=== PATIENT | female | born 1955 | race Caucasian/White ===

== ENCOUNTER 2017-04-04 00:11 | Inpatient (IN) | payer BC, OTHER ==
[~2017-04-04] VITALS: Ht 33 cm; Wt 137.1 kg
[~2017-04-04 00:11] MED LIST: ASPI81CH43 PO; BENA5TAB5; GABA600T; INSLANTI; METF-370
[2017-04-04] MEDS ORDERED: ACETAMINOPHEN 325 MG TAB PO ONE ×2 (01:05→07:45)
[2017-04-04] MEDS ORDERED: VANCOMYCIN 1GM/250ML D5W 250 ML IV ONE (02:50)
[2017-04-04] MEDS ORDERED: PIPERACILLIN-TAZOB 3.375GM 100 ML IV ONE (02:50)
[2017-04-04] MEDS ORDERED: MORPHINE SULF INJ 2 MG/ML SYRINGE 1ML IV ONE (06:00)
[2017-04-04 07:43] LABS: Albumin 3.1 g/dL (3.4-5.0); Alkaline Phosphatase 89 U/L (45-117); Anion Gap 11 (5-15); Aspartate Aminotransferase 21 U/L (15-37); BUN/Creatinine Ratio 16.9; Bilirubin, Total 0.7 mg/dL (0.2-1.0); Blood Urea Nitrogen 30 mg/dL (7-18); Calcium 8.8 mg/dL (8.5-10.1); Carbon Dioxide 23 mmol/L (21-32); Chloride 104 mmol/L (98-107); GFR African American 38 mL/min; GFR Non-African American 31 mL/min; Glucose 321 mg/dL (74-106); Potassium 4.4 mmol/L (3.5-5.1); Sodium 138 mmol/L (136-145); Total Protein 6.8 g/dL (6.4-8.2)
[2017-04-04 07:46] LABS: Basophils # (auto) 0 uL; Eosinophils # (auto) 0 uL; Eosinophils % (auto) 0.2 % (0.0-7.0); Lymphocytes # (auto) 0.3 uL; Lymphocytes % (auto) 2.6 % (10.0-50.0); Mean Corpuscular Hemoglobin 29.9 pg (28.0-32.0); Mean Corpuscular Hgb Conc. 33.4 g/dL (32.0-36.0); Mean Corpuscular Volume 89.4 fL (80.0-100.0); Monocytes # (auto) 0.7 uL; Monocytes % (auto) 6.3 % (0.0-12.0); Neutrophils % (auto) 90.9 % (37.0-80.0); Platelet Count (auto) 223 10^3/uL (140-450); Red Cell Distribution Width 14.6 % (11.6-16.0)
[2017-04-04 07:47] LABS: INR 0.97 (0.9-1.15); Partial Thromboplastin Time 10.6 sec (22.64-33.71)
[2017-04-04] MEDS ORDERED: LORazepam 2MG/ML-1ML VIAL IV PRN (10:00)
[2017-04-04] MEDS ORDERED: DEXTROSE (50%) 50ML SYRG IV PRN ×2 (10:00)
[2017-04-04] MEDS ORDERED: TEMAZEPAM 15 MG CAP PO PRN (10:00)
[2017-04-04] MEDS ORDERED: NITROGLYCERIN 0.4 MG SL TAB SL PRN (10:00)
[2017-04-04] MEDS ORDERED: ONDANSETRON HCL 4 MG/2 ML VIAL IV PRN (10:00)
[2017-04-04] MEDS ORDERED: MORPHINE SULFATE 4 MG/ML SYRG IV PRN (10:00)
[2017-04-04 10:38] LABS: Cholesterol 125 mg/dL (< 200); HDL Cholesterol 38 mg/dL (40-59); LDL Cholesterol 67 mg/dL (< 100); Triglycerides 168 mg/dL (< 150)
[2017-04-04] MEDS ORDERED: cefTRIAXone 1GM/50ML D5W 50 ML IV SCH (10:45)
[2017-04-04] MEDS: SODIUM CHLORIDE 0.9% 1,000 ML IV SCH (11:03)
[2017-04-04] MEDS: ACCU-CHEK COMFORT CURVE STRIP VI SCH ×3 (11:42→22:16)
[2017-04-04] MEDS: InsuLIN REG 1unit/0.01ml Soln (100units/ml) SC SCH ×3 (11:42→22:17)
[2017-04-04] MEDS: PIPERACILLIN-TAZOB 3.375GM 100 ML IV SCH ×2 (12:02→18:00)
[2017-04-04] MEDS: ACETAMINOPHEN 500 MG TAB PO PRN ×2 (13:35→22:12)
[2017-04-04 14:19] VITALS: BP 139/78
[2017-04-04 20:00] VITALS: BP 112/61
[2017-04-04 21:38] VITALS: BP 112/51
[2017-04-04] MEDS ORDERED: ATORVASTATIN 20 MG TAB PO SCH (22:00)
[2017-04-04] MEDS: ATORVASTATIN 20 MG TAB PO SCH (22:12)
[2017-04-04] MEDS: CLINDAMYCIN 600MG IV 50 ML IV SCH (22:12)
[2017-04-05] MEDS: SODIUM CHLORIDE 0.9% 1,000 ML IV SCH ×2 (00:05→14:11)
[2017-04-05] MEDS: InsuLIN REG 1unit/0.01ml Soln (100units/ml) SC SCH ×5 (00:06→21:49)
[2017-04-05] MEDS: PIPERACILLIN-TAZOB 3.375GM 100 ML IV SCH ×5 (00:10→23:44)
[2017-04-05 05:00] VITALS: BP 139/74
[2017-04-05] MEDS: CLINDAMYCIN 600MG IV 50 ML IV SCH ×3 (05:28→21:48)
[2017-04-05 05:50] LABS: Urine Bilirubin Negative (Negative); Urine Color Yellow (Yellow); Urine Ketone Negative (Negative); Urine Nitrite Negative (Negative); Urine RBC 1 /hpf (0 - 4); Urine Urobilinogen Normal (Negative)
[2017-04-05 05:51] LABS: Urine Blood 1+ /uL (Negative); Urine Glucose 1+ mg/dL (Normal)
[2017-04-05] MEDS: ACETAMINOPHEN 500 MG TAB PO PRN (06:23)
[2017-04-05] MEDS: ACCU-CHEK COMFORT CURVE STRIP VI SCH ×4 (06:25→21:59)
[2017-04-05 06:43] LABS: Basophils # (auto) 0 uL; Basophils % (auto) 0.2 % (0.0-2.0); CONDITION Y; Eosinophils # (auto) 0 uL; Hematocrit 31.8 % (36.0-46.0); Hemoglobin 10.8 g/dL (12.2-16.2); Lymphocytes # (auto) 0.7 uL; Lymphocytes % (auto) 5.7 % (10.0-50.0); Mean Corpuscular Hemoglobin 30.2 pg (28.0-32.0); Mean Corpuscular Hgb Conc. 33.8 g/dL (32.0-36.0); Mean Corpuscular Volume 89.3 fL (80.0-100.0); Mean Platelet Volume 8.1 fL (7.4-10.4); Monocytes # (auto) 0.5 uL; Monocytes % (auto) 4.5 % (0.0-12.0); Neutrophils # (auto) 10.6 uL; Neutrophils % (auto) 89.6 % (37.0-80.0); Platelet Count (auto) 197 10^3/uL (140-450); Red Cell Distribution Width 14.7 % (11.6-16.0); SUSPECT SEE PRINTOUT; White Blood Cell 11.9 10^3/uL (4.4-10.8)
[2017-04-05 07:03] LABS: BUN/Creatinine Ratio 16.5; Calcium 8.1 mg/dL (8.5-10.1); Potassium 4.3 mmol/L (3.5-5.1)
[2017-04-05] MEDS ORDERED: LOSA50TA6 PO (07:27)
[2017-04-05] MEDS ORDERED: INSUINJ37 SUBCUT ×2 (07:27)
[2017-04-05] MEDS ORDERED: IBUP800T24 PO (07:27)
[2017-04-05] MEDS ORDERED: LAB20I IV (07:27)
[2017-04-05] MEDS ORDERED: FURO40TA4 PO (07:27)
[2017-04-05] MEDS ORDERED: BENZ100C97 PO (07:27)
[2017-04-05] MEDS ORDERED: SEVE800T8 PO (07:27)
[2017-04-05] MEDS ORDERED: ALLO100T PO (07:27)
[2017-04-05] MEDS ORDERED: CYCL1TAB18 PO (07:27)
[2017-04-05] MEDS ORDERED: ATOR40TA52 PO (07:27)
[2017-04-05] MEDS ORDERED: INSU50IN3 SC (07:27)
[2017-04-05] MEDS ORDERED: META-116 PO (07:27)
[2017-04-05 09:00] VITALS: BP 109/57
[2017-04-05 13:00] VITALS: BP 126/62
[2017-04-05] MEDS: MORPHINE SULFATE 4 MG/ML SYRG IV PRN ×2 (15:18→20:18)
[2017-04-05 16:57] VITALS: BP 113/76
[2017-04-05 20:00] VITALS: BP 118/44
[2017-04-05] MEDS: ATORVASTATIN 20 MG TAB PO SCH (21:48)
[2017-04-05 22:00] VITALS: BP 118/44
[2017-04-06 05:00] VITALS: BP 106/48
[2017-04-06 05:20] LABS: Basophils # (auto) 0 uL; Basophils % (auto) 0.3 % (0.0-2.0); CONDITION Y; Eosinophils # (auto) 0.1 uL; Hemoglobin 9.8 g/dL (12.2-16.2); Lymphocytes # (auto) 0.7 uL; Lymphocytes % (auto) 7.1 % (10.0-50.0); Mean Corpuscular Hemoglobin 30.2 pg (28.0-32.0); Mean Corpuscular Hgb Conc. 33.7 g/dL (32.0-36.0); Mean Corpuscular Volume 89.6 fL (80.0-100.0); Mean Platelet Volume 8.3 fL (7.4-10.4); Monocytes # (auto) 0.5 uL; Monocytes % (auto) 4.8 % (0.0-12.0); Neutrophils # (auto) 9.2 uL; Neutrophils % (auto) 86.8 % (37.0-80.0); Platelet Count (auto) 207 10^3/uL (140-450); Red Cell Distribution Width 15.2 % (11.6-16.0); White Blood Cell 10.6 10^3/uL (4.4-10.8)
[2017-04-06 05:34] LABS: BUN/Creatinine Ratio 16.9; Calcium 8.1 mg/dL (8.5-10.1); Potassium 4.1 mmol/L (3.5-5.1)
[2017-04-06] MEDS: CLINDAMYCIN 600MG IV 50 ML IV SCH ×3 (05:53→21:37)
[2017-04-06] MEDS: PIPERACILLIN-TAZOB 3.375GM 100 ML IV SCH ×4 (06:14→23:46)
[2017-04-06] MEDS: ACCU-CHEK COMFORT CURVE STRIP VI SCH ×4 (06:44→21:37)
[2017-04-06] MEDS: InsuLIN REG 1unit/0.01ml Soln (100units/ml) SC SCH ×4 (06:44→21:37)
[2017-04-06] MEDS: MORPHINE SULFATE 4 MG/ML SYRG IV PRN ×3 (06:45→21:36)
[2017-04-06 09:00] VITALS: BP 96/47
[2017-04-06] MEDS ORDERED: SODIUM CHLORIDE 0.9% 1,000 ML IV SCH (10:45)
[2017-04-06 12:08] VITALS: BP 117/68
[2017-04-06 16:21] VITALS: BP 117/57
[2017-04-06] MEDS: ATORVASTATIN 20 MG TAB PO SCH (21:37)
[2017-04-06 21:45] VITALS: BP 151/77
[2017-04-06] MEDS ORDERED: INSULIN DETEMIR(LEVEMIR) 1unit/0.01ml Soln (100units/ml) SC SCH ×3 (22:00)
[2017-04-07] MEDS: MORPHINE SULFATE 4 MG/ML SYRG IV PRN ×3 (04:11→17:11)
[2017-04-07 05:00] VITALS: BP 130/52
[2017-04-07] MEDS: CLINDAMYCIN 600MG IV 50 ML IV SCH ×2 (05:46→14:00)
[2017-04-07] MEDS: PIPERACILLIN-TAZOB 3.375GM 100 ML IV SCH ×3 (05:57→17:11)
[2017-04-07 06:14] LABS: Basophils # (auto) 0 uL; Basophils % (auto) 0.3 % (0.0-2.0); CONDITION Y; Eosinophils # (auto) 0.2 uL; Eosinophils % (auto) 2.5 % (0.0-7.0); Hematocrit 27.8 % (36.0-46.0); Hemoglobin 9.4 g/dL (12.2-16.2); Lymphocytes # (auto) 0.9 uL; Lymphocytes % (auto) 13.3 % (10.0-50.0); Mean Corpuscular Hgb Conc. 33.9 g/dL (32.0-36.0); Mean Corpuscular Volume 88.7 fL (80.0-100.0); Mean Platelet Volume 8.4 fL (7.4-10.4); Monocytes # (auto) 0.6 uL; Monocytes % (auto) 8.8 % (0.0-12.0); Neutrophils # (auto) 5.3 uL; Neutrophils % (auto) 75.1 % (37.0-80.0); Platelet Count (auto) 209 10^3/uL (140-450); Red Cell Distribution Width 14.7 % (11.6-16.0); White Blood Cell 7.1 10^3/uL (4.4-10.8)
[2017-04-07 06:34] LABS: BUN/Creatinine Ratio 18.3; Calcium 8.2 mg/dL (8.5-10.1); Potassium 4.3 mmol/L (3.5-5.1)
[2017-04-07] MEDS: InsuLIN REG 1unit/0.01ml Soln (100units/ml) SC SCH ×3 (06:38→17:00)
[2017-04-07] MEDS: ACCU-CHEK COMFORT CURVE STRIP VI SCH ×3 (06:38→17:00)
[2017-04-07 09:00] VITALS: BP 120/57
[2017-04-07] MEDS ORDERED: SODIUM CHLORIDE 0.9% 1,000 ML IV SCH (10:45)
[2017-04-07 13:00] VITALS: BP 128/68
[2017-04-07 17:00] VITALS: BP 124/75
== END 2017-04-07 19:25 | disposition home health service (06) | DRG 602 ==
LOC: ER 00:11 → TELE 00:12 → TELE-CENTR 13:57
PROVIDERS: ADMIT Nurse Practitioner Family; ATTEND Family Medicine
PROC: 5A09357 Assistance with Respiratory Ventilation, Less than 24 Consecutive Hours, Continuous Positive Airway Pressure (ICD-10-PCS; principal; 2017-04-04)
DX: L03.90 Cellulitis, unspecified (principal); G93.41 Metabolic encephalopathy; E66.01 Morbid (severe) obesity due to excess calories; R29.700 NIHSS score 0; N18.3 Chronic kidney disease, stage 3 (moderate); I12.9 Hypertensive chronic kidney disease with stage 1 through stage 4 chronic kidney disease, or unspecified chronic kidney disease; G89.29 Other chronic pain; G47.33 Obstructive sleep apnea (adult) (pediatric); E11.22 Type 2 diabetes mellitus with diabetic chronic kidney disease; D64.9 Anemia, unspecified; E11.42 Type 2 diabetes mellitus with diabetic polyneuropathy; E78.5 Hyperlipidemia, unspecified; K59.00 Constipation, unspecified; Z79.4 Long term (current) use of insulin; Z90.710 Acquired absence of both cervix and uterus; Z79.82 Long term (current) use of aspirin; Z79.84 Long term (current) use of oral hypoglycemic drugs; Z79.899 Other long term (current) drug therapy; Z82.49 Family history of ischemic heart disease and other diseases of the circulatory system; Z83.3 Family history of diabetes mellitus; Z80.9 Family history of malignant neoplasm, unspecified; Z90.49 Acquired absence of other specified parts of digestive tract
CPT/HCPCS: 36415; 70450; 71010; 80048; 80053; 80061; 81001; 82962; 83036; 83605; 84484; 85025; 85610; 85730; 87040; 87081; 93005; 93970; 94660; 95819; 96365; 96375; J0696; J1815; J2543; J3490

== ENCOUNTER 2017-06-20 04:22 | Inpatient (IN) | payer BC ==
[~2017-06-20] VITALS: Ht 172.7 cm; Wt 122.5 kg
[~2017-06-20 04:22] MED LIST changes: +ALLO100T PO; -ASPI81CH43 PO; +ATOR40TA52 PO; -BENA5TAB5; +BENZ100C97 PO; +CYCL1TAB18 PO; +FURO40TA4 PO; -GABA600T; +IBUP800T24 PO; +INSU50IN3 SC; +INSUINJ37 SUBCUT; +LAB20I IV; +LOSA50TA6 PO; +META-116 PO; -METF-370; +SEVE800T8 PO
[2017-06-20] MEDS ORDERED: SODIUM CHLORIDE 0.9% 1,000 ML IV ONE (07:34)
[2017-06-20] MEDS ORDERED: MORPHINE SULF INJ 2 MG/ML SYRINGE 1ML IV ONE (07:45)
[2017-06-20] MEDS ORDERED: ONDANSETRON HCL 4 MG/2 ML VIAL IV ONE ×2 (07:45)
[2017-06-20 08:27] LABS: Basophils # (auto) 0 uL; Basophils % (auto) 0.4 % (0.0-2.0); Eosinophils # (auto) 0.2 uL; Eosinophils % (auto) 1.7 % (0.0-7.0); Hematocrit 34.2 % (36.0-46.0); Hemoglobin 11.5 g/dL (12.2-16.2); Lymphocytes # (auto) 1.8 uL; Lymphocytes % (auto) 16.6 % (10.0-50.0); Mean Corpuscular Hemoglobin 29.9 pg (28.0-32.0); Mean Corpuscular Hgb Conc. 33.5 g/dL (32.0-36.0); Mean Corpuscular Volume 89.3 fL (80.0-100.0); Mean Platelet Volume 7.5 fL (6.9-10.8); Monocytes # (auto) 0.7 uL; Monocytes % (auto) 6.6 % (0.0-12.0); Neutrophils % (auto) 74.7 % (37.0-80.0); Platelet Count (auto) 250 10^3/uL (140-450); Red Cell Distribution Width 14.4 % (11.8-14.3); White Blood Cell 10.7 10^3/uL (4.4-10.8)
[2017-06-20 08:50] LABS: Albumin 2.9 g/dL (3.4-5.0); BUN/Creatinine Ratio 24.2; Bilirubin, Total 0.4 mg/dL (0.2-1.0); Calcium 9.1 mg/dL (8.5-10.1); Potassium 4.4 mmol/L (3.5-5.1); Total Protein 7.4 g/dL (6.4-8.2)
[2017-06-20] MEDS ORDERED: PIPERACILLIN-TAZOB 3.375GM 100 ML IV ONE (10:15)
[2017-06-20] MEDS ORDERED: LACTULOSE 20Gm/30ML SOLN PO PRN (10:15)
[2017-06-20] MEDS ORDERED: ACETAMINOPHEN 500 MG TAB PO PRN (10:15)
[2017-06-20] MEDS ORDERED: LORazepam 0.5 MG TAB PO PRN (10:15)
[2017-06-20] MEDS ORDERED: DEXTROSE (50%) 50ML SYRG IV PRN (10:15)
[2017-06-20] MEDS ORDERED: NITROGLYCERIN 0.4 MG SL TAB SL PRN (10:15)
[2017-06-20] MEDS ORDERED: PROMETHAZINE HCL 25 MG/ML 1ML IV PRN (10:15)
[2017-06-20] MEDS ORDERED: MORPHINE SULF INJ 2 MG/ML SYRINGE 1ML IV PRN (10:15)
[2017-06-20] MEDS: SODIUM CHLORIDE 0.9% 1,000 ML IV SCH ×2 (10:58→20:06)
[2017-06-20] MEDS: InsuLIN REG 1unit/0.01ml Soln (100units/ml) SC SCH ×3 (12:55→22:18)
[2017-06-20] MEDS: ACCU-CHEK COMFORT CURVE STRIP VI SCH ×3 (12:55→22:19)
[2017-06-20 15:52] LABS: Urine Bilirubin Negative (Negative); Urine Blood Negative /uL (Negative); Urine Color Yellow (Yellow); Urine Glucose TRACE mg/dL (Normal); Urine Hyaline Cast FEW /lpf (0 - 2); Urine Ketone Negative (Negative); Urine Nitrite Negative (Negative); Urine RBC 1 /hpf (0 - 4); Urine Squamous Epithelial Cell FEW /hpf (<5); Urine Urobilinogen Normal (Negative); Urine pH 5.5 (5.0-8.0)
[2017-06-20] MEDS: LINEZOLID 600MG/300ML 300 ML IV SCH ×2 (16:00→22:07)
[2017-06-20] MEDS: MORPHINE SULF INJ 2 MG/ML SYRINGE 1ML IV PRN ×2 (16:07→20:12)
[2017-06-20] MEDS: PIPERACILLIN-TAZOB 3.375GM 100 ML IV SCH (17:41)
[2017-06-20 22:00] VITALS: BP 128/65
[2017-06-21] MEDS: PIPERACILLIN-TAZOB 3.375GM 100 ML IV SCH ×4 (00:59→18:03)
[2017-06-21] MEDS: TEMAZEPAM 15 MG CAP PO PRN (01:40)
[2017-06-21] MEDS: MORPHINE SULF INJ 2 MG/ML SYRINGE 1ML IV PRN ×4 (03:34→19:37)
[2017-06-21 05:00] VITALS: BP 143/72
[2017-06-21] MEDS: InsuLIN REG 1unit/0.01ml Soln (100units/ml) SC SCH ×4 (05:51→22:31)
[2017-06-21] MEDS: ACCU-CHEK COMFORT CURVE STRIP VI SCH ×4 (05:51→22:32)
[2017-06-21] MEDS: SODIUM CHLORIDE 0.9% 1,000 ML IV SCH ×2 (05:52→14:28)
[2017-06-21 06:11] LABS: Basophils # (auto) 0 uL; Basophils % (auto) 0.5 % (0.0-2.0); Eosinophils # (auto) 0.2 uL; Eosinophils % (auto) 2.6 % (0.0-7.0); Hematocrit 31.2 % (36.0-46.0); Hemoglobin 10.6 g/dL (12.2-16.2); Lymphocytes # (auto) 1.1 uL; Mean Corpuscular Hemoglobin 29.9 pg (28.0-32.0); Mean Corpuscular Hgb Conc. 33.9 g/dL (32.0-36.0); Mean Corpuscular Volume 88.2 fL (80.0-100.0); Mean Platelet Volume 7.7 fL (6.9-10.8); Monocytes # (auto) 0.7 uL; Monocytes % (auto) 7.8 % (0.0-12.0); Neutrophils # (auto) 6.6 uL; Neutrophils % (auto) 76.1 % (37.0-80.0); Platelet Count (auto) 226 10^3/uL (140-450); Red Cell Distribution Width 14.3 % (11.8-14.3); White Blood Cell 8.7 10^3/uL (4.4-10.8)
[2017-06-21 06:19] LABS: Albumin 2.5 g/dL (3.4-5.0); Calcium 8.2 mg/dL (8.5-10.1); Potassium 4.4 mmol/L (3.5-5.1)
[2017-06-21 06:21] LABS: BUN/Creatinine Ratio 21.1
[2017-06-21 06:24] LABS: Bilirubin, Total 0.7 mg/dL (0.2-1.0); Total Protein 6.3 g/dL (6.4-8.2)
[2017-06-21] MEDS: PANTOPRAZOLE 40 MG TAB PO SCH (09:27)
[2017-06-21] MEDS: ENOXAPARIN SOD 40 MG/0.4 ML SYRINGE SC SCH (09:27)
[2017-06-21] MEDS: LINEZOLID 600MG/300ML 300 ML IV SCH ×2 (09:27→22:55)
[2017-06-21 10:18] VITALS: BP 132/61
[2017-06-21] MEDS: HYDROcodone-ACET 5/325MG TAB PO PRN (11:32)
[2017-06-21 15:34] VITALS: BP 127/76
[2017-06-21 17:39] VITALS: BP 91/61
[2017-06-21] MEDS: BUMETANIDE (0.25MG/ML) 4 ML VIAL IV SCH (18:02)
[2017-06-21 22:00] VITALS: BP 140/75
[2017-06-21] MEDS: INSULIN DETEMIR(LEVEMIR) 1unit/0.01ml Soln (100units/ml) SC SCH (22:32)
[2017-06-22] MEDS: PIPERACILLIN-TAZOB 3.375GM 100 ML IV SCH ×2 (00:42→06:30)
[2017-06-22] MEDS: TEMAZEPAM 15 MG CAP PO PRN ×2 (00:46→22:27)
[2017-06-22 05:00] VITALS: BP 147/71
[2017-06-22] MEDS: BUMETANIDE (0.25MG/ML) 4 ML VIAL IV SCH (06:30)
[2017-06-22] MEDS: InsuLIN REG 1unit/0.01ml Soln (100units/ml) SC SCH ×4 (06:47→22:26)
[2017-06-22] MEDS: ACCU-CHEK COMFORT CURVE STRIP VI SCH ×4 (06:47→22:27)
[2017-06-22] MEDS: INSULIN DETEMIR(LEVEMIR) 1unit/0.01ml Soln (100units/ml) SC SCH ×2 (06:47→22:26)
[2017-06-22] MEDS: HYDROcodone-ACET 5/325MG TAB PO PRN (06:57)
[2017-06-22 07:03] LABS: Calcium 8.6 mg/dL (8.5-10.1); Potassium 4.4 mmol/L (3.5-5.1)
[2017-06-22] MEDS: SODIUM CHLORIDE 0.9% 1,000 ML IV SCH ×2 (07:08→14:24)
[2017-06-22 07:41] VITALS: BP 139/66
[2017-06-22] MEDS: LINEZOLID 600MG/300ML 300 ML IV SCH ×2 (10:12→22:17)
[2017-06-22] MEDS: PANTOPRAZOLE 40 MG TAB PO SCH (10:12)
[2017-06-22] MEDS: ENOXAPARIN SOD 40 MG/0.4 ML SYRINGE SC SCH (10:12)
[2017-06-22] MEDS: PIPERACILLIN-TAZOB 2.25GM 50 ML IV SCH ×3 (11:41→18:08)
[2017-06-22 12:03] VITALS: BP 116/61
[2017-06-22] MEDS: MORPHINE SULF INJ 2 MG/ML SYRINGE 1ML IV PRN (19:35)
[2017-06-22 22:00] VITALS: BP 151/74
[2017-06-23] MEDS: PIPERACILLIN-TAZOB 2.25GM 50 ML IV SCH ×3 (00:11→12:12)
[2017-06-23] MEDS: MORPHINE SULF INJ 2 MG/ML SYRINGE 1ML IV PRN ×2 (00:21→06:21)
[2017-06-23 05:14] VITALS: BP 134/71
[2017-06-23] MEDS: SODIUM CHLORIDE 0.9% 1,000 ML IV SCH ×2 (06:20→10:28)
[2017-06-23 06:26] LABS: BUN/Creatinine Ratio 16.1; Calcium 8.8 mg/dL (8.5-10.1); Potassium 3.9 mmol/L (3.5-5.1)
[2017-06-23] MEDS: ACCU-CHEK COMFORT CURVE STRIP VI SCH ×2 (06:31→11:13)
[2017-06-23] MEDS: InsuLIN REG 1unit/0.01ml Soln (100units/ml) SC SCH ×2 (06:32→11:14)
[2017-06-23] MEDS: INSULIN DETEMIR(LEVEMIR) 1unit/0.01ml Soln (100units/ml) SC SCH (06:32)
[2017-06-23 09:00] VITALS: BP 140/66
[2017-06-23] MEDS ORDERED: ENOXAPARIN SOD 40 MG/0.4 ML SYRINGE SC SCH (10:00)
[2017-06-23] MEDS ORDERED: ENOXAPARIN SOD 30 MG/0.3 ML SYRINGE SC SCH (10:00)
[2017-06-23] MEDS: LINEZOLID 600MG/300ML 300 ML IV SCH (10:16)
[2017-06-23] MEDS: PANTOPRAZOLE 40 MG TAB PO SCH (10:16)
[2017-06-23] MEDS ORDERED: DOXY-216 PO (12:40)
[2017-06-23] MEDS ORDERED: SACC1CAP3 PO (12:40)
[2017-06-23] MEDS ORDERED: CEPH-37 PO (12:40)
[2017-06-23] MEDS ORDERED: TEMA15CA91 PO (12:50)
[2017-06-23] MEDS ORDERED: ZOLP10TA PO (12:52)
[2017-06-23] MEDS ORDERED: TRAZ50TA2 PO (12:52)
[2017-06-23 13:00] VITALS: BP 131/56
[2017-06-23 15:06] VITALS: BP 130/60
== END 2017-06-23 16:20 | disposition home or self-care (01) | DRG 603 ==
LOC: ER 04:22 → EDBD 04:22 → TELE 04:23 → TELE-E-ADS 11:02 → TELE-EAST 12:26
PROVIDERS: ADMIT Internal Medicine; ATTEND Hospitalist
DX: L03.115 Cellulitis of right lower limb (principal); E11.22 Type 2 diabetes mellitus with diabetic chronic kidney disease; N17.9 Acute kidney failure, unspecified; I50.9 Heart failure, unspecified; N18.3 Chronic kidney disease, stage 3 (moderate); I13.0 Hypertensive heart and chronic kidney disease with heart failure and stage 1 through stage 4 chronic kidney disease, or unspecified chronic kidney disease; Z68.41 Body mass index [BMI] 40.0-44.9, adult; I80.3 Phlebitis and thrombophlebitis of lower extremities, unspecified; T50.2X5A Adverse effect of carbonic-anhydrase inhibitors, benzothiadiazides and other diuretics, initial encounter; E11.65 Type 2 diabetes mellitus with hyperglycemia; E66.01 Morbid (severe) obesity due to excess calories; M10.9 Gout, unspecified; R59.1 Generalized enlarged lymph nodes; J45.909 Unspecified asthma, uncomplicated; E78.5 Hyperlipidemia, unspecified; Z83.3 Family history of diabetes mellitus; Z90.49 Acquired absence of other specified parts of digestive tract; Z90.710 Acquired absence of both cervix and uterus; Y92.89 Other specified places as the place of occurrence of the external cause; Z79.4 Long term (current) use of insulin; Z79.899 Other long term (current) drug therapy; Z90.89 Acquired absence of other organs; Z80.9 Family history of malignant neoplasm, unspecified; Z82.49 Family history of ischemic heart disease and other diseases of the circulatory system; Z90.721 Acquired absence of ovaries, unilateral
CPT/HCPCS: 36415; 80048; 80053; 81001; 82962; 83036; 83605; 85025; 85379; 85652; 87040; 87081; 87086; 93971; 94761; 96361; 96365; 96375; J1815; J2405; J2543

== ENCOUNTER 2018-02-02 04:39 | Emergency (ER) | payer BC ==
[~2018-02-02] VITALS: Ht 172.7 cm; Wt 90.7 kg
[~2018-02-02 04:39] MED LIST changes: +CEPH-37 PO; +DOXY-216 PO; -IBUP800T24 PO; -LAB20I IV; -LOSA50TA6 PO; -META-116 PO; +SACC1CAP3 PO; +TRAZ50TA2 PO
[2018-02-02 07:19] LABS: Basophils # (auto) 0 uL; Basophils % (auto) 0.6 % (0.0-2.0); Eosinophils # (auto) 0.2 uL; Eosinophils % (auto) 2.6 % (0.0-7.0); Hematocrit 37.8 % (36.0-46.0); Lymphocytes # (auto) 1.4 uL; Lymphocytes % (auto) 21.7 % (10.0-50.0); Mean Corpuscular Hemoglobin 30.4 pg (28.0-32.0); Mean Corpuscular Hgb Conc. 34.4 g/dL (32.0-36.0); Mean Corpuscular Volume 88.5 fL (80.0-100.0); Monocytes # (auto) 0.4 uL; Neutrophils # (auto) 4.3 uL; Neutrophils % (auto) 68.1 % (37.0-80.0); Nucleated Red Blood Cells % 0.1 %; Platelet Count (auto) 229 10^3/uL (140-450); Red Blood Cells 4.27 10^6/uL (4.0-5.20); Red Cell Distribution Width 14.6 % (11.8-14.3); Salicylate < 1.7 mg/dL (2.8-20.0); White Blood Cell 6.3 10^3/uL (4.4-10.8)
[2018-02-02 07:21] LABS: Acetaminophen 4.1 ug/mL (10-30); Albumin 2.8 g/dL (3.4-5.0); Anion Gap 8 (5-15); BUN/Creatinine Ratio 25.3; Blood Alcohol < 3.0 mg/dL (0-5); Blood Urea Nitrogen 43 mg/dL (7-18); Calcium 8.9 mg/dL (8.5-10.1); Carbon Dioxide 24 mmol/L (21-32); Chloride 109 mmol/L (98-107); GFR African American 39 mL/min; GFR Non-African American 33 mL/min; Glucose 204 mg/dL (74-106); Magnesium 2.4 mg/dL (1.6-2.6); Potassium 4.4 mmol/L (3.5-5.1); Sodium 141 mmol/L (136-145)
[2018-02-02 07:24] LABS: Alanine Aminotransferase 28 U/L (13-56); Alkaline Phosphatase 91 U/L (45-117); Aspartate Aminotransferase 17 U/L (15-37); Bilirubin, Total 0.3 mg/dL (0.2-1.0); Total Protein 7.5 g/dL (6.4-8.2)
[2018-02-02 08:35] LABS: Urine Bacteria MANY /hpf (None Seen); Urine Blood 1+ /uL (Negative); Urine Specific Gravity 1.019 (1.001-1.035); Urine WBC 163 /hpf (0 - 5); Urine WBC Clumps PRESENT /hpf (None Seen)
[2018-02-02 08:47] LABS: Alcohol, Urine < 3.0 mg/dL (0-5); Amphetamine Screen, Urine NEGATIVE (NEGATIVE); Barbiturate Scree,Urine NEGATIVE (NEGATIVE); Benzodiazephine Screen, Urine NEGATIVE (NEGATIVE); Cannabinoid Screen, Urine NEGATIVE (NEGATIVE); Cocaine Screen, Urine NEGATIVE (NEGATIVE); Opiate Scree,Urine POSITIVE (NEGATIVE); Phencyclidine Screen, Urine NEGATIVE (NEGATIVE)
[2018-02-02 09:40] VITALS: BP 158/113
== END 2018-02-02 11:59 | disposition home or self-care (01) ==
LOC: EDBD 04:39 → ER 04:45
DX: T50.7X1A Poisoning by analeptics and opioid receptor antagonists, accidental (unintentional), initial encounter (principal); E66.01 Morbid (severe) obesity due to excess calories; E11.65 Type 2 diabetes mellitus with hyperglycemia; E11.21 Type 2 diabetes mellitus with diabetic nephropathy; J45.909 Unspecified asthma, uncomplicated; M10.9 Gout, unspecified; N39.0 Urinary tract infection, site not specified; N18.9 Chronic kidney disease, unspecified; E11.22 Type 2 diabetes mellitus with diabetic chronic kidney disease; I12.9 Hypertensive chronic kidney disease with stage 1 through stage 4 chronic kidney disease, or unspecified chronic kidney disease; E78.5 Hyperlipidemia, unspecified; Z90.49 Acquired absence of other specified parts of digestive tract; Z90.710 Acquired absence of both cervix and uterus; Y92.89 Other specified places as the place of occurrence of the external cause
CPT/HCPCS: 36415; 80053; 80307; 80320; 80329; 81001; 83735; 85025; 93005

== ENCOUNTER 2020-01-27 15:05 | Inpatient (IN) | payer MEDICARE, MEDICAID ==
[~2020-01-27] VITALS: Ht 167.6 cm; Wt 112.9 kg
[~2020-01-27 15:05] MED LIST changes: -DOXY-216 PO; +DOXY-286 PO
[2020-01-27] MEDS ORDERED: SODIUM CHLORIDE 0.9% 1,000 ML IV ONE (15:51)
[2020-01-27 16:40] LABS: Basophils # (auto) 0 10 ^3/uL (0-0.2); Basophils % (auto) 0.2 % (0.0-2.0); Eosinophils # (auto) 0 10 ^3/uL (0-0.8); Hemoglobin 10.7 g/dL (12.2-16.2); Platelet Count (auto) 577 10^3/uL (140-450)
[2020-01-27 16:42] LABS: Eosinophils % (auto) 0.1 % (0.0-7.0); Hematocrit 33.4 % (36.0-46.0); Lymphocytes # (auto) 0.8 10 ^3/uL (0.4-5.4); Lymphocytes % (auto) 4.4 % (10.0-50.0); Mean Corpuscular Hemoglobin 28.2 pg (28.0-32.0); Mean Corpuscular Volume 88.1 fL (80.0-100.0); Monocytes # (auto) 1.2 10 ^3/uL (0-1.3); Monocytes % (auto) 6.7 % (0.0-12.0); Neutrophils # (auto) 15.7 10 ^3/uL (1.6-8.6); Neutrophils % (auto) 88.6 % (37.0-80.0); Red Blood Cells 3.79 10^6/uL (4.0-5.20); Red Cell Distribution Width 15.3 % (11.8-14.3); White Blood Cell 17.7 10^3/uL (4.4-10.8)
[2020-01-27 17:08] LABS: INR 1.08 (0.9-1.15); Partial Thromboplastin Time 31.8 sec (23.64-32.05)
[2020-01-27 17:13] LABS: Anion Gap 11 (5-15); Blood Urea Nitrogen 62 mg/dL (7-18); Calcium 10.3 mg/dL (8.5-10.1); Carbon Dioxide 20 mmol/L (21-32); Chloride 103 mmol/L (98-107); Glucose 264 mg/dL (74-106); Magnesium 2.6 mg/dL (1.6-2.6); Potassium 4.7 mmol/L (3.5-5.1); Sodium 134 mmol/L (136-145)
[2020-01-27 17:15] LABS: Alanine Aminotransferase 14 U/L (13-56); Aspartate Aminotransferase 14 U/L (15-37); GFR African American 28 mL/min; GFR Non-African American 23 mL/min
[2020-01-27 17:18] LABS: Alkaline Phosphatase 250 U/L (45-117); Bilirubin, Total 0.4 mg/dL (0.2-1.0); Total Protein 9.2 g/dL (6.4-8.2)
[2020-01-27 17:20] LABS: BUN/Creatinine Ratio 27.2
[2020-01-27 17:27] LABS: Albumin 1.9 g/dL (3.4-5.0)
[2020-01-27 17:29] LABS: Lactic Acid w/Reflex 2.1 mmol/L (0.4-2.0)
[2020-01-27 18:53] LABS: Amphetamine Screen, Urine NEGATIVE (NEGATIVE); Barbiturate Scree,Urine NEGATIVE (NEGATIVE); Benzodiazephine Screen, Urine NEGATIVE (NEGATIVE); Cannabinoid Screen, Urine NEGATIVE (NEGATIVE); Cocaine Screen, Urine NEGATIVE (NEGATIVE); Opiate Scree,Urine NEGATIVE (NEGATIVE); Phencyclidine Screen, Urine NEGATIVE (NEGATIVE); Urine Bacteria NONE SEEN /hpf (None Seen); Urine Blood 2+ /uL (Negative); Urine Mucus FEW (None Seen); Urine Specific Gravity 1.021 (1.001-1.035); Urine WBC 5 /hpf (0 - 5)
[2020-01-27] MEDS ORDERED: NITROGLYCERIN 0.4 MG SL TAB SL PRN ×3 (20:30→20:45)
[2020-01-27] MEDS ORDERED: MORPHINE SULF INJ 2 MG/ML SYRINGE 1ML IV PRN ×2 (20:30→20:45)
[2020-01-27] MEDS: SOD CHL 0.45% 1,000 ML IV SCH (20:32)
[2020-01-27] MEDS ORDERED: METOPROLOL SUCCINATE XL 50 MG TAB PO ONE (20:45)
[2020-01-27] MEDS ORDERED: ONDANSETRON HCL 4 MG/2 ML VIAL IV PRN (20:45)
[2020-01-27] MEDS ORDERED: DEXTROSE (50%) 50ML SYRG IV PRN (20:45)
[2020-01-27] MEDS ORDERED: LORazepam 2MG/ML-1ML VIAL IM PRN (20:45)
[2020-01-27] MEDS ORDERED: HALOPERIDOL LACTATE 5 MG/ML INJ VIAL IM PRN (20:45)
[2020-01-27] MEDS ORDERED: LOSARTAN POTASSIUM 50 MG TAB PO ONE (20:45)
[2020-01-27] MEDS ORDERED: IPRATROPIUM BROM 0.5 MG/2.5ML INH SOL NEB PRN (21:30)
[2020-01-27] MEDS ORDERED: ALBUTEROL SULF 2.5 MG/0.5ML(0.5%) NEB SOLN NEB PRN (21:30)
[2020-01-27] MEDS: CYCLOBENZAPRINE HCL 10 MG TAB PO SCH (22:00)
[2020-01-27] MEDS ORDERED: InsuLIN REG 1unit/0.01ml Soln (100units/ml) SC SCH (22:00)
[2020-01-27] MEDS: traZODone HCL 50 MG TAB PO SCH (22:00)
[2020-01-27] MEDS: ATORVASTATIN 20 MG TAB PO SCH (22:00)
[2020-01-27] MEDS: FUROSEMIDE 100 MG/10ML VIAL IV SCH (22:00)
[2020-01-27] MEDS: ACCU-CHEK COMFORT CURVE STRIP VI SCH (22:00)
[2020-01-27 22:07] VITALS: BP 169/64
[2020-01-28] VITALS (54 sets, daily range): BP systolic 113–184; BP diastolic 51–85
--- NOTE | 2020-01-28 00:03 | NUR ---
Admit to [facility] admitted to [facility] via gurney on surveillance system monitor, and portable 02. Patient transfered to bed, connected to unit monitoring and oxygen, and [facility] by [facility]. Patient oriented to RIVER STRATTON primary RN, unit, room, bed, and unit policies regarding patient care and visiting hours. All questions and concerns addressed. Addendum: 01/28/20 at 0051 by Madison Espinosa RN PATIENT IS AWAKE, CONFUSED, DOES NOT FOLLOW COMMANDS. ARRIVED ON MEDSURG RESTRAINTS TO BILATERAL UPPER EXTREMITIES AND A SITTER AT BEDSIDE. ON ROOM AIR. KIT KENNY AT 5MCG. PATIENT IS INCONTINENT OF BOWEL. SINGH CATH DRAINING YELLOW URINE TO GRAVITY. PICS TAKEN OF RIGHT HIP AND LEFT FOOT. WILL CONTINUE TO CLOSELY MONITOR.
--- NOTE | 2020-01-28 00:20 | NUR ---
MRSA SWABS SENT TO LAB
--- NOTE | 2020-01-28 00:23 | NUR ---
wound photos taken
[2020-01-28] MEDS ORDERED: GABA-339 PO (00:30)
--- NOTE | 2020-01-28 00:30 | NUR ---
MORNING HYGIENE CARE FULL BED BATH PERFORMED USING CHG WIPES AND WARM SOAPY WASH CLOTHES. GOWN CHANGED. PARTIAL LINEN CHANGED. REPOSITIONED FOR COMFORT. TOLERATED IT WELL.
[2020-01-28] MEDS ORDERED: FURO1TAB32 PO (00:34)
[2020-01-28] MEDS ORDERED: LOSA-69 PO (00:34)
[2020-01-28] MEDS ORDERED: SENN1TAB14 PO (00:34)
[2020-01-28] MEDS ORDERED: ACET250T3 PO (00:34)
[2020-01-28] MEDS: LORazepam 0.5 MG TAB PO PRN (01:43)
--- NOTE | 2020-01-28 02:17 | NUR ---
Respiratory note: At bedside to assess pt for prn tx. Tx not indicated at this time.
[2020-01-28 03:44] LABS: Basophils # (auto) 0 10 ^3/uL (0-0.2); Basophils % (auto) 0.1 % (0.0-2.0); Eosinophils # (auto) 0 10 ^3/uL (0-0.8); Hematocrit 29.2 % (36.0-46.0); Hemoglobin 9.4 g/dL (12.2-16.2); Monocytes # (auto) 1.2 10 ^3/uL (0-1.3)
[2020-01-28 03:46] LABS: Lymphocytes # (auto) 0.6 10 ^3/uL (0.4-5.4); Lymphocytes % (auto) 3.3 % (10.0-50.0); Mean Corpuscular Hemoglobin 27.6 pg (28.0-32.0); Mean Corpuscular Volume 86.4 fL (80.0-100.0); Monocytes % (auto) 6.5 % (0.0-12.0); Neutrophils % (auto) 90.1 % (37.0-80.0); Platelet Count (auto) 511 10^3/uL (140-450); Red Blood Cells 3.38 10^6/uL (4.0-5.20); White Blood Cell 18.9 10^3/uL (4.4-10.8)
[2020-01-28 03:51] LABS: INR 1.13 (0.9-1.15); Partial Thromboplastin Time 29.8 sec (23.64-32.05)
[2020-01-28 03:54] LABS: Albumin 1.6 g/dL (3.4-5.0); Anion Gap 11 (5-15); Blood Urea Nitrogen 73 mg/dL (7-18); Calcium 9.4 mg/dL (8.5-10.1); Carbon Dioxide 21 mmol/L (21-32); Chloride 104 mmol/L (98-107); Glucose 400 mg/dL (74-106); Magnesium 2.5 mg/dL (1.6-2.6); Potassium 4.7 mmol/L (3.5-5.1); Sodium 136 mmol/L (136-145)
[2020-01-28 04:01] LABS: % Iron Saturation 11.3 % (15-50)
[2020-01-28 04:03] LABS: Alanine Aminotransferase 13 U/L (13-56); Alkaline Phosphatase 234 U/L (45-117); Aspartate Aminotransferase 13 U/L (15-37); BUN/Creatinine Ratio 28.3; Bilirubin, Total 0.4 mg/dL (0.2-1.0); Cholesterol 120 mg/dL (< 200); Creatine Kinase IFCC 48 U/L (26-192); Folate (Folic Acid) 13.84 ng/mL (5.38-24); GFR African American 24 mL/min; GFR Non-African American 20 mL/min; HDL Cholesterol 19 mg/dL (40-59); LDL Cholesterol 70 mg/dL (< 100); Phosphorus 3.6 mg/dL (2.5-4.90); Total Protein 8.3 g/dL (6.4-8.2); Triglycerides 158 mg/dL (< 150); Uric Acid 11.8 mg/dL (2.6-6.0)
[2020-01-28 04:08] LABS: CRP High Sensitivity > 19.0 mg/dL (< 0.3)
[2020-01-28] MEDS ORDERED: FUROSEMIDE 40 MG/4 ML VIAL ONE (04:27)
--- NOTE | 2020-01-28 05:15 | NUR ---
IV insertion IV access obtained, via clean sterile technique by inserting [20] gauge catheter at [LEFT FOREARM] after [1] attempt(s). IV secured properly. No trauma to site. Patient tolerated well. NOTE: 2ND IV SITE
[2020-01-28] MEDS: FUROSEMIDE 100 MG/10ML VIAL IV SCH (05:20)
[2020-01-28] MEDS: ACCU-CHEK COMFORT CURVE STRIP VI SCH ×7 (05:21→23:31)
[2020-01-28] MEDS: InsuLIN REG 1unit/0.01ml Soln (100units/ml) SC SCH ×5 (05:46→23:33)
--- NOTE | 2020-01-28 06:34 | NUR ---
Respiratory note: PT ASSESSED FOR PRN TX. HR 100, RR 18, POX 98% ON 3L NC, BS ARE CLR/DIM. NO SOB OR DISTRESS NOTED. PT WAS NOTIFY TO HAVE RN PAGE RT FOR NEEDED TX.
--- NOTE | 2020-01-28 06:59 | NUR ---
received phone call from son after receiving correct password, updated son on patient status. Informed on icu status hospital while in [facility] unit. All questions addressed at this time.
--- NOTE | 2020-01-28 07:18 | NUR ---
END OF SHIFT REPORT GIVEN AND CARE ENDORSED TO ELÍAS HOLMAN.
--- NOTE | 2020-01-28 07:30 | NUR ---
Opening Shift Note Assumed care of patient, awake and oriented x2, follows simple commands. Both wrist on soft restraints, skin and circulation WNL. No S/S of distress/SOB or pain. Patient saturation 95% at 3 LPM oxygen via nasal cannula. See interventions for complete assessment. Bed locked on low position, side rails up x2, bed alarms on at all times, call gambino within reach, ANN Vaughn at bedside, will continue to monitor for changes Q1hr and PRN.
--- NOTE | 2020-01-28 08:00 | NUR ---
Soft restraint on RT wrist removed, Skin and circulation WNL, will continue to monitor patient.
--- NOTE | 2020-01-28 08:30 | NUR ---
Soft wrist restraint removed on LT wrist, skin and circulation WNL. Will continue to monitor patient.
--- NOTE | 2020-01-28 09:00 | NUR ---
Patient asleep and calm, soft wrist restraint discontinued on both wrist, skin and circulation WNL.
--- NOTE | 2020-01-28 09:05 | NUR ---
Received call from patient's daughter in law Maco who is able to provide password. Updated on patient's status and POC, verbalized understanding. All questions and concerns addressed.
[2020-01-28] MEDS: DOCUSATE SOD 100 MG CAP PO SCH (10:00)
[2020-01-28] MEDS ORDERED: ALLOPURINOL 100 MG TAB PO SCH (10:00)
[2020-01-28] MEDS ORDERED: LOSARTAN POTASSIUM 50 MG TAB PO SCH (10:00)
[2020-01-28] MEDS: FLORASTOR (S. BOULARDII) 250 MG CAP PO SCH (10:00)
[2020-01-28] MEDS ORDERED: ENOXAPARIN SOD 40 MG/0.4 ML SYRINGE SC SCH (10:00)
[2020-01-28] MEDS: cefTRIAXone 1GM/50ML D5W 50 ML IV SCH (10:03)
[2020-01-28] MEDS: ENOXAPARIN SOD 30 MG/0.3 ML SYRINGE SC SCH (10:04)
--- NOTE | 2020-01-28 10:30 | NUR ---
PO medications held, patient not awake and safe enough to swallow at this time
[2020-01-28] MEDS: AZITHROMYCIN 500MG/ 250ML 250 ML IV SCH (11:19)
[2020-01-28] MEDS: SOD CHL 0.45% 1,000 ML IV SCH ×2 (11:20→13:47)
--- NOTE | 2020-01-28 12:45 | NUR ---
Patient fed with two packs of apple sauce.
[2020-01-28] MEDS: METOPROLOL TARTRATE 50 MG TAB PO SCH ×2 (12:59→22:00)
[2020-01-28] MEDS: ASPirin 81 mg TAB PO SCH (12:59)
[2020-01-28] MEDS ORDERED: VANCOMYCIN PER PHARMACY 0 MG IV SCH (13:00)
--- NOTE | 2020-01-28 13:00 | NUR ---
Paged Dr Win and called back, inquired if patient can be started on Aspirin and Plavix per Dr Laurent. Dr Win states "Will wait until tomorrow." Will inform Dr Laurent. Addendum: 01/28/20 at 1409 by Yuly Baeza RN Jacques patient
--- NOTE | 2020-01-28 13:08 | NUR ---
Dr Slaughter at bedside, updated on patient's status. Informed of blood culture report, verbalized understanding, plan to start patient on Vanco. Patient seen and examined. Per Dr Slaughter patient can be down graded to [facility] once Nicardipine drip is off. Read back and verified. Will carry out new orders.
--- NOTE | 2020-01-28 13:10 | NUR ---
Received verbal order from Dr Slaughter to discontinue Furosemide, read back and verified. Will carry out.
--- NOTE | 2020-01-28 13:26 | NUR ---
Urine sample sent to lab
--- NOTE | 2020-01-28 13:30 | NUR ---
Mishel Castillo at bedside, updated on patient's status. Patient seen and examined. Will carry out new orders.
--- NOTE | 2020-01-28 13:30 | NUR ---
BP 118/81, Nicardipine drip turned off. Will continue to monitor.
--- NOTE | 2020-01-28 13:45 | NUR ---
MRSA swab sent to lab
[2020-01-28 14:02] LABS: Urine Amorphous Crystal MANY /hpf (None Seen); Urine Bacteria FEW /hpf (None Seen); Urine Blood 2+ /uL (Negative); Urine Hyaline Cast MANY /lpf (0 - 2); Urine Mucus FEW (None Seen); Urine Specific Gravity 1.019 (1.001-1.035); Urine WBC 14 /hpf (0 - 5)
--- NOTE | 2020-01-28 14:12 | NUR ---
Echocardiogram being done at bedside.
[2020-01-28 14:14] LABS: Amphetamine Screen, Urine NEGATIVE (NEGATIVE); Barbiturate Scree,Urine NEGATIVE (NEGATIVE); Benzodiazephine Screen, Urine NEGATIVE (NEGATIVE); Cannabinoid Screen, Urine NEGATIVE (NEGATIVE); Cocaine Screen, Urine NEGATIVE (NEGATIVE); Opiate Scree,Urine NEGATIVE (NEGATIVE); Phencyclidine Screen, Urine NEGATIVE (NEGATIVE)
[2020-01-28] MEDS: LINEZOLID 600MG/300ML 300 ML IV SCH ×2 (14:20→23:33)
--- NOTE | 2020-01-28 14:47 | NUR ---
Paged Dr Slaughter regarding patient D-dimer 5.52, awaiting call back.
--- NOTE | 2020-01-28 15:09 | NUR ---
Spoke to Ryan from Nuclear Medicine regarding patient's VQ scan, per Ryan it can't be done today because medication is not available. Dr Slaughter informed.
--- NOTE | 2020-01-28 15:38 | NUR ---
Bilateral venous ultrasound being done at bedside.
--- NOTE | 2020-01-28 15:54 | NUR ---
COVID swab sent to lab
--- NOTE | 2020-01-28 16:32 | NUR ---
Urine sample sent to lab.
[2020-01-28 16:42] LABS: BUN/Creatinine Ratio 26.3
--- NOTE | 2020-01-28 17:00 | NUR ---
Spoke to Dr Slaughter over the phone, informed of patient's serum glucose 420, POC glucose 358. Received telephone order to start patient on Insulin drip per protocol and switch IV to 1/2 NS with Sodium Bicarbonate, orders read back and verified. Will carry out.
[2020-01-28] MEDS ORDERED: InsuLIN R (HUMAN) 100 UNITS in SODIUM CHL 0.9% 99 ML IV SCH (17:36)
[2020-01-28] MEDS ORDERED: SODIUM BICARBONATE 50ML VIAL 50 ML in SOD CHL 0.45% 1,000 ML IV SCH (17:45)
--- NOTE | 2020-01-28 18:30 | NUR ---
Paged Dr Yang and called back, updated on patient's status. Informed of patient's POC glucose 352 mg/dl, serum glucose 420. verbalized understanding. Received telephone order to hold Insulin drip and Bicarb IV. Start patient on Lantus and Lispro, switch Insulin sliding scale from moderate to aggressive every four hours and check patient's ABG. Orders read back and verified, will carry out.
[2020-01-28 18:33] LABS: Urine Amorphous Crystal FEW /hpf (None Seen); Urine Blood 2+ /uL (Negative); Urine Mucus FEW (None Seen); Urine Specific Gravity 1.019 (1.001-1.035); Urine WBC 28 /hpf (0 - 5)
[2020-01-28 18:34] LABS: Protein, Urine 459.2 mg/dL (0.0-11.9)
[2020-01-28 18:55] LABS: Urine Bacteria FEW /hpf (None Seen)
[2020-01-28 18:56] LABS: Urine Hyaline Cast FEW /lpf (0 - 2)
[2020-01-28] MEDS ORDERED: INSULIN LANTUS (GLARGINE) 1 /0.01ml (100units/ml) SC ONE (19:00)
--- NOTE | 2020-01-28 19:10 | NUR ---
Respiratory note: ASSESSMENT FOR PRN MED NEB TX. DR. PABLO AT BEDSIDE. HR 74, SPO2 95% ON 28% FIO2 2L NC, RR 15, BS DIMINISHED. PT PRESENTING NO RESPIRATORY DISTRESS AT THIS TIME. MED NEB TX NOT INDICATED. ABG DRAWN, NO NEW RESPIRATORY ORDERS AT THIS TIME. WILL CONTINUE TO MONITOR.
[2020-01-28] MEDS ORDERED: DEXTROSE (50%) 50ML SYRG IV PRN (19:15)
--- NOTE | 2020-01-28 20:00 | NUR ---
SHIFT OPENING NOTE PATIENT IS AWAKE ALERT AND ORIENTED X3. IS CALM, FOLLOWS COMMANDS. ON 3L N/C. POX 97%. SINGH CATH DRAINING YELLOW URINE TO GRAVITY. 0.45NS INFUSING AT 125 ML/H. PHYSICAL ASSESSMENT COMPLETED, SEE INTERVENTIONS. INSTRUCTED ON POC AND TO CALL FOR ASSIST NEEDED. BED IS IN THE LOWEST POSITION WITH SIDE RAILS UP X2, CALL LIGHT IS WITHIN REACH. BED ALARM ON. SITTER AT BEDSIDE FOR SAFETY. WILL CONTINUE TO CLOSELY MONITOR.
[2020-01-28] MEDS: traZODone HCL 50 MG TAB PO SCH (20:47)
[2020-01-28] MEDS: CYCLOBENZAPRINE HCL 10 MG TAB PO SCH (20:47)
[2020-01-28] MEDS: ATORVASTATIN 20 MG TAB PO SCH (20:48)
[2020-01-28] MEDS: HYDROcodone-ACET 5/325MG TAB PO PRN (20:49)
[2020-01-29] VITALS: BP 128/52
[2020-01-29] MEDS: SOD CHL 0.45% 1,000 ML IV SCH ×3 (02:31→11:25)
--- NOTE | 2020-01-29 03:00 | NUR ---
MORNING HYGIENE CARE FULL BED BATH PERFORMED USING CHG WIPES AND WARM SOAPY WASH CLOTHES. GOWN CHANGED. PARTIAL LINEN CHANGED. REPOSITIONED FOR COMFORT. TOLERATED IT WELL.
[2020-01-29 04:00] VITALS: BP 130/52
[2020-01-29 04:11] LABS: RPR Non Reactive (Non Reactive)
[2020-01-29 04:52] LABS: Basophils # (auto) 0 10 ^3/uL (0-0.2); Basophils % (auto) 0.1 % (0.0-2.0); Eosinophils # (auto) 0.1 10 ^3/uL (0-0.8); Eosinophils % (auto) 0.5 % (0.0-7.0); Hematocrit 27.3 % (36.0-46.0); Hemoglobin 8.6 g/dL (12.2-16.2); Lymphocytes # (auto) 0.6 10 ^3/uL (0.4-5.4); Lymphocytes % (auto) 3.9 % (10.0-50.0); Mean Corpuscular Hemoglobin 27.6 pg (28.0-32.0); Mean Corpuscular Hgb Conc. 31.5 g/dL (32.0-36.0); Mean Corpuscular Volume 87.5 fL (80.0-100.0); Monocytes # (auto) 0.9 10 ^3/uL (0-1.3); Monocytes % (auto) 5.7 % (0.0-12.0); Neutrophils # (auto) 13.6 10 ^3/uL (1.6-8.6); Neutrophils % (auto) 89.8 % (37.0-80.0); Platelet Count (auto) 437 10^3/uL (140-450); Red Blood Cells 3.12 10^6/uL (4.0-5.20); Red Cell Distribution Width 16.2 % (11.8-14.3); White Blood Cell 15.1 10^3/uL (4.4-10.8)
[2020-01-29 05:08] LABS: Albumin 1.5 g/dL (3.4-5.0); Potassium 4.6 mmol/L (3.5-5.1)
[2020-01-29 05:14] LABS: BUN/Creatinine Ratio 26.9; Bilirubin, Total 0.3 mg/dL (0.2-1.0); Total Protein 7.9 g/dL (6.4-8.2)
[2020-01-29] MEDS: ACCU-CHEK COMFORT CURVE STRIP VI SCH ×6 (05:24→23:45)
[2020-01-29] MEDS: InsuLIN REG 1unit/0.01ml Soln (100units/ml) SC SCH ×6 (05:24→23:46)
[2020-01-29] MEDS: INSULIN LISPRO (HUMAN) 100 UNITS/ML ML SC SCH ×3 (05:25→16:06)
--- NOTE | 2020-01-29 07:20 | NUR ---
ENF OF SHIFT REPORT GIVEN AND CARE ENDORSED TO JAKE HOLMAN.
--- NOTE | 2020-01-29 07:20 | NUR ---
REPORT RECEIVED FROM MOLD REPAIRER NURSE. PATIENT RESTING IN BED AT THIS TIME. RESPIRATIONS EVEN AND UNLABORED. NO SIGNS OF ACUTE DISTRESS NOTED. PATIENT IS ALERT WITH INTERMITTENT CONFUSION PULLING AT LINES. MITTENS IN PLACE FOR PATIENT SAFETY. CALL LIGHT IN REACH, BED IN LOW POSITION. WILL CONTINUE TO MONITOR.
[2020-01-29 08:00] VITALS: BP 148/65
--- NOTE | 2020-01-29 09:00 | NUR ---
DR Gisell ADAME AT BEDSIDE TO ASSESS PATIENT AND DISCUSS PLAN OF CARE. ALL ORDERS NOTED IN CHART.
[2020-01-29] MEDS: cefTRIAXone 1GM/50ML D5W 50 ML IV SCH (09:05)
[2020-01-29] MEDS: DOCUSATE SOD 100 MG CAP PO SCH (10:00)
--- NOTE | 2020-01-29 10:21 | NUR ---
DR ANDERSEN AT BEDSIDE TO ASSESS PATIENT AND DISCUSS PLAN OF CARE. ALL ORDERS NOTED IN CHART.
[2020-01-29] MEDS ORDERED: ALLOPURINOL 100 MG TAB PO SCH (10:30)
[2020-01-29] MEDS ORDERED: FUROSEMIDE 100 MG/10ML VIAL IV ONE (11:15)
[2020-01-29] MEDS ORDERED: FUROSEMIDE 40 MG/4 ML VIAL ONE (11:17)
[2020-01-29] MEDS: AZITHROMYCIN 500MG/ 250ML 250 ML IV SCH (11:25)
[2020-01-29] MEDS: ENOXAPARIN SOD 30 MG/0.3 ML SYRINGE SC SCH (11:25)
[2020-01-29] MEDS: ASPirin 81 mg TAB PO SCH (11:25)
[2020-01-29] MEDS: FLORASTOR (S. BOULARDII) 250 MG CAP PO SCH (11:25)
[2020-01-29] MEDS: METOPROLOL TARTRATE 50 MG TAB PO SCH ×2 (11:25→21:54)
[2020-01-29 12:00] VITALS: BP 142/59
[2020-01-29] MEDS: ACETAMINOPHEN 325 MG TAB PO PRN (12:44)
--- NOTE | 2020-01-29 13:41 | NUR ---
DOSIER OPERATOR AT BEDSIDE.
--- NOTE | 2020-01-29 14:22 | NUR ---
EEG- ELECTROENCEPHALOGRAM COMPLETED ON 01/29/2020 AT 1400.
--- NOTE | 2020-01-29 15:07 | NUR ---
PATIENT TAKEN TO RADIOLOGY FOR VQ SCAN AND LEFT FOOT CT VIA BED CONNECTED TO PORTABLE MONITOR AND OXYGEN, ACCOMPANIED BY RADIOLOGY NURSE AND TECH. NO SIGNS OF ACUTE DISTRESS NOTED.
[2020-01-29] MEDS: LINEZOLID 600MG/300ML 300 ML IV SCH (15:09)
--- NOTE | 2020-01-29 15:30 | NUR ---
Attempted PT eval but pt is out of room for test. Will attempt again later.
--- NOTE | 2020-01-29 15:53 | NUR ---
PATIENT RETURNED BACK FROM RADIOLOGY CONNECTED TO BEDSIDE MONITOR AND OXYGEN. VITAL SIGNS STABLE. WILL CONTINUE TO MONITOR. BED IN LOW POSITION, CALL LIGHT IN REACH. REMOVED MITTENS PATIENTS MENTATION HAS IMPROVED. DISCUSSED WITH PATIENT NOT TO PULL ON LINES OR TUBING. PATIENT VERBALIZED UNDERSTANDING.
[2020-01-29 16:00] VITALS: BP 123/61
--- NOTE | 2020-01-29 16:02 | NUR ---
HEALTH AND WELLNESS ADVISOR AT BEDSIDE
--- NOTE | 2020-01-29 17:05 | NUR ---
REPORT GIVEN TO ELIANA HOLMAN PATIENT TO GO TO ROOM 276B.
--- NOTE | 2020-01-29 17:15 | NUR ---
PATIENT TRANSFERRED VIA BED CONNECTED TO TELE BOX 82 VIA BED CONNECTED TO OXYGEN. NO SIGNS OF ACUTE DISTRESS NOTED. ELIANA RN AT BEDSIDE WELL TRUANT OFFICER UPON ARRIVAL. BED IN LOW POSITION. CALL LIGHT IN REACH. WILL CONTINUE TO MONITOR.
[2020-01-29] MEDS: HYDROcodone-ACET 5/325MG TAB PO PRN ×2 (17:45→22:58)
--- NOTE | 2020-01-29 19:30 | NUR ---
Opening Shift Note Assumed care of patient, awake and alert times 4. No S/S of distress/SOB or pain. patient has scabs to her upper and lower extremities. Instructed on POC and to call for assist PRN, will continue to monitor for changes Q1hr and PRN. bed in low position call light within reach bed alarm on. Addendum: 01/29/20 at 2037 by JESSICA ANDERSON RN RN CORRECTION A/O TIMES 3
--- NOTE | 2020-01-29 19:30 | NUR ---
Respiratory note: ASSESSED PT FOR PRN TX, PT WAS AWAKE AND ALERT WITH RN AT BEDSIDE. NO RESP DISTRESS NOTED. HR 78, RR 16, SPO2 98% ON 2L NC. PATIENT KNOWS TO HAVE RT PAGED IF TX IS NEEDED.
--- NOTE | 2020-01-29 19:30 | NUR ---
PATIENT REFUSED SCD. PATIENT EDUCATED BENEFITS AND RISKS. PATIENT VERBALIZED UNDERSTANDING
[2020-01-29 21:27] VITALS: BP 154/67
[2020-01-29] MEDS: CYCLOBENZAPRINE HCL 10 MG TAB PO SCH (21:54)
[2020-01-29] MEDS: traZODone HCL 50 MG TAB PO SCH (21:55)
[2020-01-29] MEDS: ATORVASTATIN 20 MG TAB PO SCH (21:55)
[2020-01-29] MEDS: INSULIN LANTUS (GLARGINE) 1 /0.01ml (100units/ml) SC SCH (21:59)
--- NOTE | 2020-01-29 22:58 | NUR ---
6/ 10 pain generalized aching. patient medicated per protocol
--- NOTE | 2020-01-29 23:58 | NUR ---
pain reassessment patient is sleeping no signs of distress sob or pain. fall precautions in place
[2020-01-30] VITALS (7 sets, daily range): BP systolic 130–154; BP diastolic 49–70
[2020-01-30] MEDS: SOD CHL 0.45% 1,000 ML IV SCH (00:48)
[2020-01-30] MEDS: LINEZOLID 600MG/300ML 300 ML IV SCH ×2 (00:58→12:31)
[2020-01-30] MEDS: ACCU-CHEK COMFORT CURVE STRIP VI SCH ×6 (03:50→23:56)
[2020-01-30] MEDS: InsuLIN REG 1unit/0.01ml Soln (100units/ml) SC SCH ×6 (03:51→23:57)
[2020-01-30] MEDS: HYDROcodone-ACET 5/325MG TAB PO PRN ×4 (05:12→20:18)
--- NOTE | 2020-01-30 05:12 | NUR ---
0512 PATIENT REPORTED 6/10 PAIN PATIENT MEDICATED PER PROTOCOL OXYGEN REASSESED 95% VIA NC 2L
[2020-01-30] MEDS: INSULIN LISPRO (HUMAN) 100 UNITS/ML ML SC SCH ×3 (06:02→17:49)
--- NOTE | 2020-01-30 06:48 | NUR ---
patient rounds patient is in bed watching tv. denies sob distress or pain.patient position to comfort. pressure areas offloaded onto pillows. dressings are clean dry and intact. skin intact scabs to hip and left toe. call light within reach fall precautions in place. bed in low position. bed alarm on.
[2020-01-30 07:03] LABS: Basophils # (auto) 0 10 ^3/uL (0-0.2); Eosinophils # (auto) 0.2 10 ^3/uL (0-0.8); Hemoglobin 8.3 g/dL (12.2-16.2)
[2020-01-30 07:04] LABS: Basophils % (auto) 0.1 % (0.0-2.0); Eosinophils % (auto) 1.2 % (0.0-7.0); Hematocrit 26.2 % (36.0-46.0); Lymphocytes # (auto) 0.7 10 ^3/uL (0.4-5.4); Lymphocytes % (auto) 4.6 % (10.0-50.0); Mean Corpuscular Hemoglobin 27.4 pg (28.0-32.0); Mean Corpuscular Hgb Conc. 31.5 g/dL (32.0-36.0); Mean Corpuscular Volume 87.1 fL (80.0-100.0); Monocytes # (auto) 1.1 10 ^3/uL (0-1.3); Neutrophils # (auto) 13.8 10 ^3/uL (1.6-8.6); Neutrophils % (auto) 87.1 % (37.0-80.0); Platelet Count (auto) 400 10^3/uL (140-450); Red Blood Cells 3.01 10^6/uL (4.0-5.20); Red Cell Distribution Width 15.8 % (11.8-14.3); White Blood Cell 15.9 10^3/uL (4.4-10.8)
--- NOTE | 2020-01-30 07:15 | NUR ---
REPORT GIVEN TO SAUNDRA HOLMAN.
[2020-01-30 07:35] LABS: Bilirubin, Total 0.3 mg/dL (0.2-1.0); Calcium 9.1 mg/dL (8.5-10.1); Total Protein 7.4 g/dL (6.4-8.2)
[2020-01-30 07:54] LABS: Albumin 1.3 g/dL (3.4-5.0); BUN/Creatinine Ratio 29.7
[2020-01-30] MEDS: cefTRIAXone 1GM/50ML D5W 50 ML IV SCH (08:23)
--- NOTE | 2020-01-30 08:35 | NUR ---
PATIENT CONTINUES TO EXPERIENCE PAIN AFTER RECEIVING PAIN MEDICATIONS. PROVIDED PATIENT WITH HEAT PACKS AND REPOSITIONED. WILL CONTACT MD FOR ADDITIONAL PAIN MED OPTIONS.
[2020-01-30] MEDS ORDERED: FUROSEMIDE 40 MG/4 ML VIAL IV SCH (10:00)
[2020-01-30] MEDS ORDERED: ALLOPURINOL 300 MG TAB PO ONE (10:15)
[2020-01-30] MEDS: FUROSEMIDE 100 MG/10ML VIAL IV ONE ×2 (10:15→10:20)
[2020-01-30] MEDS ORDERED: FUROSEMIDE 40 MG/4 ML VIAL IV ONE (10:15)
[2020-01-30] MEDS: DOCUSATE SOD 100 MG CAP PO SCH (10:16)
[2020-01-30] MEDS: AZITHROMYCIN 500MG/ 250ML 250 ML IV SCH (10:16)
[2020-01-30] MEDS: ASPirin 81 mg TAB PO SCH (10:16)
[2020-01-30] MEDS: FLORASTOR (S. BOULARDII) 250 MG CAP PO SCH (10:17)
[2020-01-30] MEDS: METOPROLOL TARTRATE 50 MG TAB PO SCH ×2 (10:17→22:26)
[2020-01-30] MEDS: ENOXAPARIN SOD 30 MG/0.3 ML SYRINGE SC SCH (10:18)
--- NOTE | 2020-01-30 10:40 | NUR ---
Respiratory note: PATIENT ASSESSED FOR PRN MED-NEB TX; TX NOT INDICATED AT THIS TIME PATIENT IS IN NO ACUTE RESPIRATORY DISTRESS AND DENIES NEED. PATIENT INSTRUCTED TO CALL FOR RT IF SHE FEELS THE NEED FOR TX AT A LATER TIME. SPO2 97% 2LPM N/C
--- NOTE | 2020-01-30 10:53 | NUR ---
DR ADAME BEDSIDE WITH PATIENT DISCUSSING PLAN OF CARE. INFORMED DR OF PATIENTS CONTINUED PAIN AND ASKED IF LASIX SHOULD BE HELD. ORDERS RECEIVED AND CARRIED OUT. PER DR ADAME, I WILL HOLD LASIX UNTIL MADKOUR ROUNDS TODAY
[2020-01-30] MEDS: SODIUM CHLORIDE 0.9% 1,000 ML IV SCH (11:33)
--- NOTE | 2020-01-30 13:00 | NUR ---
LEFT MESSAGE FOR DR ANDERSEN REGARDING LASIX MEDICATION. PER DR ADAME, I HELD LASIX UNTIL CONFIRMED WITH DR ANDERSEN THAT MED WAS TO BE GIVEN.
--- NOTE | 2020-01-30 13:50 | NUR ---
DR PABLO BEDSIDE WITH PATIENT
--- NOTE | 2020-01-30 19:20 | NUR ---
Opening Shift Note Assumed care of patient, awake, alert and oriented x4, on 2L oxygen via NC with even and unlabored respirations, no S/S of distress/SOB or pain. Patient able to turn independently, bed in lowest locked position, side rails up x2, and call light within reach. Instructed on POC and to call for assist PRN, will continue to monitor for changes Q1hr and PRN.
[2020-01-30] MEDS: traZODone HCL 50 MG TAB PO SCH (22:24)
[2020-01-30] MEDS: CYCLOBENZAPRINE HCL 10 MG TAB PO SCH (22:24)
[2020-01-30] MEDS: ATORVASTATIN 20 MG TAB PO SCH (22:25)
[2020-01-30] MEDS: INSULIN LANTUS (GLARGINE) 1 /0.01ml (100units/ml) SC SCH (22:36)
[2020-01-31] MEDS: SODIUM CHLORIDE 0.9% 1,000 ML IV SCH (00:02)
[2020-01-31] MEDS: LINEZOLID 600MG/300ML 300 ML IV SCH ×2 (01:27→13:10)
[2020-01-31] MEDS: HYDROcodone-ACET 5/325MG TAB PO PRN ×2 (02:38→10:28)
[2020-01-31] MEDS: ACCU-CHEK COMFORT CURVE STRIP VI SCH ×5 (04:02→20:14)
[2020-01-31] MEDS: InsuLIN REG 1unit/0.01ml Soln (100units/ml) SC SCH ×5 (04:02→20:14)
[2020-01-31 05:00] VITALS: BP 135/66
[2020-01-31 05:55] LABS: Basophils # (auto) 0 10 ^3/uL (0-0.2); Basophils % (auto) 0.2 % (0.0-2.0); Eosinophils # (auto) 0.1 10 ^3/uL (0-0.8); Eosinophils % (auto) 0.8 % (0.0-7.0); Hemoglobin 8.3 g/dL (12.2-16.2); Lymphocytes # (auto) 0.5 10 ^3/uL (0.4-5.4); Lymphocytes % (auto) 3.2 % (10.0-50.0); Mean Corpuscular Hemoglobin 27.7 pg (28.0-32.0); Mean Corpuscular Hgb Conc. 31.7 g/dL (32.0-36.0); Mean Corpuscular Volume 87.2 fL (80.0-100.0); Monocytes % (auto) 6.9 % (0.0-12.0); Neutrophils % (auto) 88.9 % (37.0-80.0); Platelet Count (auto) 359 10^3/uL (140-450); Red Blood Cells 2.98 10^6/uL (4.0-5.20); Red Cell Distribution Width 15.7 % (11.8-14.3); White Blood Cell 14.6 10^3/uL (4.4-10.8)
[2020-01-31 06:07] LABS: Calcium 9.1 mg/dL (8.5-10.1); Potassium 4.8 mmol/L (3.5-5.1)
[2020-01-31 06:11] LABS: Albumin 1.2 g/dL (3.4-5.0); BUN/Creatinine Ratio 28.4
[2020-01-31 06:22] LABS: Bilirubin, Total 0.4 mg/dL (0.2-1.0); Total Protein 7.2 g/dL (6.4-8.2)
[2020-01-31] MEDS: INSULIN LISPRO (HUMAN) 100 UNITS/ML ML SC SCH ×3 (06:55→17:45)
--- NOTE | 2020-01-31 07:01 | NUR ---
Respiratory note: PT IS AWAKE, AND ALERT. NO RESPIRATORY DISTRESS NOTED. RN AT BEDSIDE. SPO2 93% ON RA, HR 77, RR 18, BS CLEAR BILATERALLY. PRN MEDNEB TX NOT INDICATED. PT INFORMED TO PUSH CALL BUTTON IF INCREASED WOB, SOB, OR WHEEZING OCCURS.
[2020-01-31 08:00] VITALS: BP 136/60
[2020-01-31] MEDS: cefTRIAXone 1GM/50ML D5W 50 ML IV SCH (08:25)
[2020-01-31 08:53] VITALS: BP 136/60
[2020-01-31] MEDS: DOCUSATE SOD 100 MG CAP PO SCH (09:56)
[2020-01-31] MEDS: FLORASTOR (S. BOULARDII) 250 MG CAP PO SCH (09:56)
[2020-01-31] MEDS: AZITHROMYCIN 500MG/ 250ML 250 ML IV SCH (09:56)
[2020-01-31] MEDS: ASPirin 81 mg TAB PO SCH (09:56)
[2020-01-31] MEDS: ALLOPURINOL 300 MG TAB PO SCH (09:57)
[2020-01-31] MEDS: METOPROLOL TARTRATE 50 MG TAB PO SCH ×2 (09:57→22:34)
[2020-01-31] MEDS: ENOXAPARIN SOD 30 MG/0.3 ML SYRINGE SC SCH (09:57)
[2020-01-31] MEDS: FUROSEMIDE 100 MG/10ML VIAL IV SCH (10:00)
--- NOTE | 2020-01-31 10:15 | NUR ---
PAGED DR ANDERSEN TO FIND OUT IF HE WANTS THE LASIX HELAD DUE TO BUN AND CR LEVELS.
--- NOTE | 2020-01-31 10:30 | NUR ---
DR ADAME BEDSIDE WITH PATIENT DISCUSSING PLAN OF CARE
--- NOTE | 2020-01-31 10:49 | NUR ---
INFORMED DR ANDERSEN OF PATIENTS BUN AND CR LEVELS. PER WESTON ADLER BEING HELD TODAY.
[2020-01-31 13:00] VITALS: BP 137/66
--- NOTE | 2020-01-31 13:03 | NUR ---
DR PABLO BEDSIDE WITH PATIENT DISCUSSING PLAN OF CARE
--- NOTE | 2020-01-31 14:30 | NUR ---
APPLIED OPTIFOAM TO PATIENTS SACRUM. PATIENT IS REFUSING Q2H TURNING. PATIENT HAS BEEN EDUCATED ON THE IMPORTANCE OF TURNING, BUT IS STILL REFUSING THE Q2H TURNING.
[2020-01-31 17:02] VITALS: BP 150/69
--- NOTE | 2020-01-31 19:20 | NUR ---
Opening Shift Note Assumed care of patient, patient is asleep at this time on 2L of oxygen via NC with even and unlabored respirations, no S/S of distress/SOB or pain. Bed in lowest locked position, side rails up x2, and call light within reach. Will instruct on POC and to call for assist PRN, will continue to monitor for changes Q1hr and PRN.
[2020-01-31 21:00] VITALS: BP 155/73
[2020-01-31] MEDS: traZODone HCL 50 MG TAB PO SCH (22:33)
[2020-01-31] MEDS: ATORVASTATIN 20 MG TAB PO SCH (22:33)
[2020-01-31] MEDS: CYCLOBENZAPRINE HCL 10 MG TAB PO SCH (22:33)
[2020-01-31] MEDS: INSULIN LANTUS (GLARGINE) 1 /0.01ml (100units/ml) SC SCH (22:34)
[2020-02-01] MEDS: ACCU-CHEK COMFORT CURVE STRIP VI SCH ×6 (00:26→20:22)
[2020-02-01] MEDS: InsuLIN REG 1unit/0.01ml Soln (100units/ml) SC SCH ×6 (00:27→20:22)
[2020-02-01] MEDS: LINEZOLID 600MG/300ML 300 ML IV SCH ×2 (01:00→13:00)
[2020-02-01 05:00] VITALS: BP 162/79
[2020-02-01] MEDS: hydrALAZINE HCL 25 MG TAB PO PRN (06:30)
[2020-02-01] MEDS: INSULIN LISPRO (HUMAN) 100 UNITS/ML ML SC SCH ×3 (06:34→16:26)
--- NOTE | 2020-02-01 07:25 | NUR ---
Opening Shift Note Assumed care of patient, awake and alert, resting in bed. No S/S of distress/SOB or pain. Updated on POC and instructed to call for assistance PRN, patient verbalized understanding. Bed locked in lowest position, side rails up x2, call light within reach, bed alarm on for safety. Will continue to monitor for changes Q1hr and PRN.
[2020-02-01] MEDS: cefTRIAXone 1GM/50ML D5W 50 ML IV SCH (08:37)
[2020-02-01] MEDS: HYDROcodone-ACET 5/325MG TAB PO PRN (08:46)
[2020-02-01 09:00] VITALS: BP 147/80
[2020-02-01] MEDS: FUROSEMIDE 100 MG/10ML VIAL IV SCH (09:43)
[2020-02-01] MEDS: AZITHROMYCIN 500MG/ 250ML 250 ML IV SCH (09:45)
[2020-02-01] MEDS: DOCUSATE SOD 100 MG CAP PO SCH (09:47)
[2020-02-01] MEDS: ASPirin 81 mg TAB PO SCH (09:47)
[2020-02-01] MEDS: FLORASTOR (S. BOULARDII) 250 MG CAP PO SCH (09:47)
[2020-02-01] MEDS: ENOXAPARIN SOD 30 MG/0.3 ML SYRINGE SC SCH (09:48)
[2020-02-01] MEDS: ALLOPURINOL 300 MG TAB PO SCH (09:48)
[2020-02-01] MEDS: METOPROLOL TARTRATE 50 MG TAB PO SCH ×2 (09:48→22:21)
--- NOTE | 2020-02-01 10:00 | NUR ---
PATIENT IS REFUSING Q2H TURNING. PATIENT HAS BEEN EDUCATED ON THE IMPORTANCE OF TURNING, BUT CONTINUES TO REFUSE THE Q2H TURNING.
[2020-02-01 10:28] LABS: Albumin 1.3 g/dL (3.4-5.0); Calcium 9.2 mg/dL (8.5-10.1); Potassium 5.1 mmol/L (3.5-5.1)
[2020-02-01 10:32] LABS: Bilirubin, Total 0.5 mg/dL (0.2-1.0)
[2020-02-01 10:35] LABS: BUN/Creatinine Ratio 28.7
[2020-02-01 13:00] VITALS: BP 128/56
--- NOTE | 2020-02-01 13:00 | NUR ---
PAGED HIP HOP DANCE INSTRUCTOR REGARDING PATIENT WANTING TO LEAVE THE HOSPITAL AGAINST MEDICAL ADVICE, MD ADAME INFORMED PATIENT OF NEED FOR SNF PLACEMENT UPON DISCHARGE. REQUESTING FOR HIP HOP DANCE INSTRUCTOR TO SPEAK TO PATIENT AT THIS TIME.
--- NOTE | 2020-02-01 13:22 | NUR ---
PATIENT STATING SHE IS GOING HOME PATIENT PULLED OFF TELE LEADS. CONTACTED SON LEIGHTON VIA TELEPHONE, SON CONNECTED TO PATIENT TO TRY AND CALM HER DOWN AND EXPLAIN THE NEED TO STAY. PATIENT STATING THAT SHE WANTS TO MOVE BUT IS REFUSING TO BE TURNED. WILL PAGE PHYSICAL THERAPY TO RE-ATTEMPT TO GET PATIENT OUT OF BED.
--- NOTE | 2020-02-01 13:40 | NUR ---
PATIENT IS AGREEING TO STAY AT THE HOSPITAL REQUESTING STRONGER PAIN MEDICATION AT THIS TIME, SPOKE WITH MD ADAME RECEIVED ORDERS, WILL INPUT AND FOLLOW THROUGH.
[2020-02-01] MEDS: MORPHINE SULF INJ 2 MG/ML SYRINGE 1ML IV PRN (13:54)
--- NOTE | 2020-02-01 14:10 | NUR ---
PATIENT TURNED ON LEFT SIDE AND REPOSITIONED
[2020-02-01 17:00] VITALS: BP 152/65
--- NOTE | 2020-02-01 19:15 | NUR ---
Opening Shift Note Assumed care of patient, awake, alert and oriented x4, on 2L of oxygen via NC, even and unlabored respirations, no S/S of distress/SOB or pain. Bed in lowest locked position, side rails up x2, and call light within reach. Instructed on POC and to call for assist PRN, will continue to monitor for changes Q1hr and PRN.
[2020-02-01 22:00] VITALS: BP 137/76
[2020-02-01] MEDS: ATORVASTATIN 20 MG TAB PO SCH (22:21)
[2020-02-01] MEDS: traZODone HCL 50 MG TAB PO SCH (22:21)
[2020-02-01] MEDS: CYCLOBENZAPRINE HCL 10 MG TAB PO SCH (22:21)
[2020-02-01] MEDS: INSULIN LANTUS (GLARGINE) 1 /0.01ml (100units/ml) SC SCH (22:24)
[2020-02-02] MEDS: ACCU-CHEK COMFORT CURVE STRIP VI SCH ×6 (00:27→20:26)
[2020-02-02] MEDS: InsuLIN REG 1unit/0.01ml Soln (100units/ml) SC SCH ×6 (00:27→20:27)
[2020-02-02] MEDS: LINEZOLID 600MG/300ML 300 ML IV SCH ×2 (01:07→12:45)
[2020-02-02] MEDS: MORPHINE SULF INJ 2 MG/ML SYRINGE 1ML IV PRN (04:36)
[2020-02-02 05:00] VITALS: BP 149/65
[2020-02-02] MEDS: INSULIN LISPRO (HUMAN) 100 UNITS/ML ML SC SCH ×3 (06:41→16:50)
[2020-02-02] MEDS: cefTRIAXone 1GM/50ML D5W 50 ML IV SCH (08:19)
[2020-02-02] MEDS: HYDROcodone-ACET 5/325MG TAB PO PRN ×2 (08:20→21:36)
[2020-02-02 09:00] VITALS: BP 106/54
[2020-02-02] MEDS: FUROSEMIDE 100 MG/10ML VIAL IV SCH (09:24)
[2020-02-02] MEDS: AZITHROMYCIN 500MG/ 250ML 250 ML IV SCH (09:26)
[2020-02-02] MEDS: DOCUSATE SOD 100 MG CAP PO SCH (09:28)
[2020-02-02] MEDS: ALLOPURINOL 300 MG TAB PO SCH (09:28)
[2020-02-02] MEDS: METOPROLOL TARTRATE 50 MG TAB PO SCH ×2 (09:28→21:36)
[2020-02-02] MEDS: FLORASTOR (S. BOULARDII) 250 MG CAP PO SCH (09:28)
[2020-02-02] MEDS: NIFEdipine ER 30 MG TAB PO SCH (09:28)
[2020-02-02] MEDS: ASPirin 81 mg TAB PO SCH (09:28)
[2020-02-02] MEDS: ENOXAPARIN SOD 30 MG/0.3 ML SYRINGE SC SCH (09:29)
[2020-02-02 10:01] LABS: Basophils # (auto) 0.1 10 ^3/uL (0-0.2); Basophils % (auto) 0.3 % (0.0-2.0); Eosinophils # (auto) 0.2 10 ^3/uL (0-0.8); Eosinophils % (auto) 1.2 % (0.0-7.0); Hematocrit 27.8 % (36.0-46.0); Hemoglobin 8.8 g/dL (12.2-16.2); Lymphocytes # (auto) 0.7 10 ^3/uL (0.4-5.4); Lymphocytes % (auto) 4.4 % (10.0-50.0); Mean Corpuscular Hemoglobin 26.7 pg (28.0-32.0); Mean Corpuscular Hgb Conc. 31.8 g/dL (32.0-36.0); Mean Corpuscular Volume 83.9 fL (80.0-100.0); Monocytes % (auto) 5.9 % (0.0-12.0); Neutrophils % (auto) 88.2 % (37.0-80.0); Platelet Count (auto) 473 10^3/uL (140-450); Red Blood Cells 3.31 10^6/uL (4.0-5.20); Red Cell Distribution Width 16.2 % (11.8-14.3)
[2020-02-02 10:21] LABS: Albumin 1.3 g/dL (3.4-5.0); Calcium 9.1 mg/dL (8.5-10.1); Potassium 5.4 mmol/L (3.5-5.1)
[2020-02-02 10:24] LABS: BUN/Creatinine Ratio 27.6; Bilirubin, Total 0.4 mg/dL (0.2-1.0); Total Protein 8.1 g/dL (6.4-8.2)
--- NOTE | 2020-02-02 11:00 | NUR ---
PATIENT REFUSING TO HAVE TELE MONITOR LEADS ON. KEEPS PULLING THEM OFF AFTER CONTINUOUS EDUCATION FOR CARDIAC MONITORING. WILL INFORM MD.
--- NOTE | 2020-02-02 12:56 | NUR ---
PATIENT PULLED OUT IV PATIENT REFUSING TO HAVE ANOTHER IV PLACED, EDUCATED ON IMPORTANCE OF HAVING IV ACCESS DURING HOSPITAL STAY, PATIENT CONTINUES TO REFUSE.
[2020-02-02 13:00] VITALS: BP 118/49
--- NOTE | 2020-02-02 13:10 | NUR ---
ANTIBIOTIC NOT RUNNING IV LINE NOT AVAILABLE AT THIS TIME, PATIENT REFUSING IV PLACEMENT, WILL ATTEMPT TO PLACE IV AT LATER TIME, IF ALLOWED WILL CONTINUE ADMINISTRATION OF ANTIBIOTIC.
--- NOTE | 2020-02-02 13:25 | NUR ---
MD ADAME AWARE OF PATIENT REFUSING TELE AND IV PLACEMENT
--- NOTE | 2020-02-02 13:45 | NUR ---
Assessment Patient is a 64-year old female who is alert and oriented. Prior to admission patient lived home with her two sons and function with assistance. Patient informed me her son helps her with her ADLs. Patient has a walker, bedside commode, shower chair, and a wheelchair for home use. Advised Patient there is a Social Service consult for Skill nursing. Information and choice letter was given to patient via phone. Patient stated she has no preference. Informed patient clinical information will be faxed to [facility]. Informed patient she has the right to participate in all discharge planning. Patient verbalized understanding and agrees to discharge plan. Per Pamela with [facility] patient has been accepted to room 209 bed 1 accepting MD, Dr. Gomez. Transportation will be arranged with [employer] transport ) upon discharge day. Informed RIVER Garcia. Addendum: 02/02/20 at 1346 by AYRAN CHUNG Amended: Links added.
--- NOTE | 2020-02-02 15:41 | NUR ---
POSITIVE BLOOD CX MD ADAME AWARE OF PATIENT POSITIVE BLOOD CA, NEW ORDERS RECEIVED, WILL INPUT AND FOLLOW THROUGH.
--- NOTE | 2020-02-02 16:15 | NUR ---
PATIENT REFUSED BLOOD GLUCOSE CHECK STATES SHE IS TRYING TO SLEEP AND TO LEAVE HER ALONE.
[2020-02-02 17:00] VITALS: BP 112/47
--- NOTE | 2020-02-02 21:00 | NUR ---
MADE CHARGE NURSE AWARE OF PATIENT'S POSITIVE BLD CULTURE IN THE BLOOD SINCE 01/26. CONTACT ISOLATION INITIATED. MD IS AWARE. ISOLATION PRECAUTION INITIATED.
--- NOTE | 2020-02-02 21:00 | NUR ---
OFFERED TO START AN IV, BUT PATIENT REFUSED. NOTED.
[2020-02-02] MEDS: traZODone HCL 50 MG TAB PO SCH (21:35)
[2020-02-02] MEDS: CYCLOBENZAPRINE HCL 10 MG TAB PO SCH (21:35)
[2020-02-02] MEDS: ATORVASTATIN 20 MG TAB PO SCH (21:35)
[2020-02-02] MEDS: INSULIN LANTUS (GLARGINE) 1 /0.01ml (100units/ml) SC SCH (21:57)
[2020-02-02 22:00] VITALS: BP 146/61
[2020-02-02] MEDS ORDERED: LINEZOLID 600MG TABLET PO SCH (22:00)
--- NOTE | 2020-02-02 22:00 | NUR ---
PATIENT KEPT DISCONNECTING HER TELE BOX. EDUCATION PROVIDE, BUT UNABLE TO UNDERSTAND. NOTED.
[2020-02-02] MEDS: ACETAMINOPHEN 325 MG TAB PO PRN (23:27)
[2020-02-02] MEDS ORDERED: guaiFENesin-DM 100/10mg/5ml SYR PO PRN (23:30)
[2020-02-03] MEDS: ACCU-CHEK COMFORT CURVE STRIP VI SCH ×6 (00:14→20:37)
--- NOTE | 2020-02-03 00:15 | NUR ---
ATTEMPTED TO DO ACCU CHECK, BUT PATIENT SAID, " GO AWAY. I NEED SOME SLEEP ".
[2020-02-03 05:00] VITALS: BP 155/75
[2020-02-03] MEDS: INSULIN LISPRO (HUMAN) 100 UNITS/ML ML SC SCH ×3 (05:23→17:39)
[2020-02-03] MEDS: InsuLIN REG 1unit/0.01ml Soln (100units/ml) SC SCH ×6 (05:24→20:49)
[2020-02-03 06:47] LABS: Calcium 9.6 mg/dL (8.5-10.1); Potassium 5.2 mmol/L (3.5-5.1)
[2020-02-03 06:54] LABS: BUN/Creatinine Ratio 27.7; Bilirubin, Total 0.4 mg/dL (0.2-1.0); Total Protein 8.5 g/dL (6.4-8.2)
[2020-02-03 07:06] LABS: Immunoglobulin G, Serum 1864 mg/dL (586-1602)
--- NOTE | 2020-02-03 07:35 | NUR ---
opening shift note assumed care of patient from NOC Rn. Patient is AOx 2, patient able to state name and that she is in the hospital, but unable to say the year or month, patient has periods of confusion. Bed is in lowest locked position, side rails up x2, and call light is within reach. Updated patient on plan of care, patient verbalized understanding and stated to leave her alone. I will continue to monitor q1hr and PRN.
[2020-02-03 08:09] LABS: Albumin 1.4 g/dL (3.4-5.0)
[2020-02-03 09:00] VITALS: BP 165/73
[2020-02-03] MEDS: cefTRIAXone 1GM/50ML D5W 50 ML IV SCH (09:00)
--- NOTE | 2020-02-03 09:30 | NUR ---
patient refused scheduled Lovenox injection. educated her on the risks of refusal.
--- NOTE | 2020-02-03 09:30 | NUR ---
patient removed telemonitor and gown, and is refusing to wear them. Educated patient about the importance of a telemonitor, patient still refusing. I will continue to monitor q1hr and PRN.
[2020-02-03] MEDS: ENOXAPARIN SOD 30 MG/0.3 ML SYRINGE SC SCH ×2 (10:00→11:29)
[2020-02-03] MEDS: FUROSEMIDE 100 MG/10ML VIAL IV SCH (10:00)
[2020-02-03] MEDS: AZITHROMYCIN 500MG/ 250ML 250 ML IV SCH (10:00)
--- NOTE | 2020-02-03 10:45 | NUR ---
PHYSICIAN ROUNDING Dr. Slaughter at bedside. Updated him on patient status. New orders received. I will follow through with MD orders.
[2020-02-03] MEDS: ALLOPURINOL 300 MG TAB PO SCH (11:28)
[2020-02-03] MEDS: ASPirin 81 mg TAB PO SCH (11:28)
[2020-02-03] MEDS: DOCUSATE SOD 100 MG CAP PO SCH (11:29)
[2020-02-03] MEDS: FLORASTOR (S. BOULARDII) 250 MG CAP PO SCH (11:29)
--- NOTE | 2020-02-03 11:30 | NUR ---
Pt noted to demonstrate angry confusion. She demanded that the [employer] information board and other objects be removed from the wall of her room & she became angrier when this HEAVY LIFT RIGGER informed her that was not possible. She then stated "I don't know what you've done with my mother. In response to this HEAVY LIFT RIGGER suggesting she participate in therapeutic activities she shouted "NO!" Addendum: 02/03/20 at 1208 by Omid Saldivar HEAVY LIFT RIGGER Amended: Links added.
[2020-02-03] MEDS: METOPROLOL TARTRATE 50 MG TAB PO SCH ×2 (11:32→22:24)
[2020-02-03] MEDS: NIFEdipine ER 30 MG TAB PO SCH (11:33)
--- NOTE | 2020-02-03 11:35 | NUR ---
Patient refusing to work with Physical therapy.
[2020-02-03] MEDS ORDERED: DAPTOmycin 500 MG in SODIUM CHL 0.9% 50 ML IV SCH (12:00)
--- NOTE | 2020-02-03 12:00 | NUR ---
Spoke with PICC line nurse Updated Angela regarding order for PICC line placement. Per Angela patient will benefit from a midline.
[2020-02-03 13:00] VITALS: BP 149/75
--- NOTE | 2020-02-03 14:15 | NUR ---
Midline Placement: Patient educated on need for midline placement. All risks and benefits explained and all questions and concerns addresses prior to procedure. 18g/10cm midline inserted via left cephalic vein using Ultrasound. Sterile technique utilized. Blood return obtained from lumen and flushed easily with NS using proper technique. Midline secured with saline lock; biodisc and occlusive dressing applied. Primary RN notified. Midline lot #[id number]
[2020-02-03 17:00] VITALS: BP 154/79
--- NOTE | 2020-02-03 19:15 | NUR ---
end of shift note care of patient endorsed to NOC RIVER Field. no s/s of distress noted at this time.
[2020-02-03 22:00] VITALS: BP 142/74
[2020-02-03] MEDS: CYCLOBENZAPRINE HCL 10 MG TAB PO SCH (22:23)
[2020-02-03] MEDS: ATORVASTATIN 20 MG TAB PO SCH (22:24)
[2020-02-03] MEDS: traZODone HCL 50 MG TAB PO SCH (22:24)
[2020-02-03] MEDS: INSULIN LANTUS (GLARGINE) 1 /0.01ml (100units/ml) SC SCH (22:26)
[2020-02-03] MEDS: MORPHINE SULF INJ 2 MG/ML SYRINGE 1ML IV PRN (23:19)
[2020-02-04] VITALS (7 sets, daily range): BP systolic 113–155; BP diastolic 59–80
[2020-02-04] MEDS: LORazepam 0.5 MG TAB PO PRN (00:50)
[2020-02-04] MEDS: InsuLIN REG 1unit/0.01ml Soln (100units/ml) SC SCH ×6 (05:41→22:32)
[2020-02-04] MEDS: INSULIN LISPRO (HUMAN) 100 UNITS/ML ML SC SCH ×3 (05:42→17:29)
[2020-02-04] MEDS: ACCU-CHEK COMFORT CURVE STRIP VI SCH ×6 (05:46→22:12)
[2020-02-04 06:25] LABS: Albumin 1.4 g/dL (3.4-5.0); Calcium 9.4 mg/dL (8.5-10.1); Potassium 5.2 mmol/L (3.5-5.1)
[2020-02-04 06:46] LABS: BUN/Creatinine Ratio 30.2; Bilirubin, Total 0.5 mg/dL (0.2-1.0)
[2020-02-04 07:53] LABS: Eosinophils % (auto) 0.9 % (0.0-7.0); Platelet Count (auto) 521 10^3/uL (140-450)
[2020-02-04 08:03] LABS: Basophils # (auto) 0 10 ^3/uL (0-0.2); Basophils % (auto) 0.2 % (0.0-2.0); Eosinophils # (auto) 0.1 10 ^3/uL (0-0.8); Hematocrit 27.4 % (36.0-46.0); Hemoglobin 8.5 g/dL (12.2-16.2); Lymphocytes # (auto) 0.8 10 ^3/uL (0.4-5.4); Lymphocytes % (auto) 6.3 % (10.0-50.0); Mean Corpuscular Hemoglobin 27.2 pg (28.0-32.0); Mean Corpuscular Hgb Conc. 30.9 g/dL (32.0-36.0); Monocytes # (auto) 0.9 10 ^3/uL (0-1.3); Monocytes % (auto) 7.1 % (0.0-12.0); Neutrophils # (auto) 11.3 10 ^3/uL (1.6-8.6); Neutrophils % (auto) 85.5 % (37.0-80.0); Nucleated Red Blood Cells % 0.1 %; Red Blood Cells 3.11 10^6/uL (4.0-5.20); Red Cell Distribution Width 16.3 % (11.8-14.3); White Blood Cell 13.3 10^3/uL (4.4-10.8)
[2020-02-04] MEDS: METOPROLOL TARTRATE 50 MG TAB PO SCH ×2 (09:14→22:17)
[2020-02-04] MEDS: ASPirin 81 mg TAB PO SCH (09:14)
[2020-02-04] MEDS: DOCUSATE SOD 100 MG CAP PO SCH (09:14)
[2020-02-04] MEDS: ALLOPURINOL 300 MG TAB PO SCH (09:14)
[2020-02-04] MEDS: FUROSEMIDE 100 MG/10ML VIAL IV SCH (09:15)
[2020-02-04] MEDS: NIFEdipine ER 30 MG TAB PO SCH (09:15)
--- NOTE | 2020-02-04 09:15 | NUR ---
Pt refused PT tx. Pt given education in the risks of inactivity and the benefits of therapeutic activities. Pt was also given significant encouragement to participate in therapy. Addendum: 02/04/20 at 1214 by Omid Saldivar BRAKE DRUM LATHE OPERATOR Amended: Links added.
[2020-02-04] MEDS: cefTRIAXone 1GM/50ML D5W 50 ML IV SCH (09:16)
[2020-02-04] MEDS: FLORASTOR (S. BOULARDII) 250 MG CAP PO SCH (09:42)
[2020-02-04] MEDS: AZITHROMYCIN 500MG/ 250ML 250 ML IV SCH (11:17)
[2020-02-04] MEDS: hydrALAZINE HCL 25 MG TAB PO PRN (11:18)
--- NOTE | 2020-02-04 11:25 | NUR ---
patient complaint of pain patient stated having a pain level of 10/10 on her left side. I will give ordered pain medication. i will continue to monitor q1hr and PRN.
[2020-02-04] MEDS: HYDROcodone-ACET 5/325MG TAB PO PRN ×2 (11:31→22:13)
[2020-02-04] MEDS: DAPTOmycin 500 MG in SODIUM CHL 0.9% 50 ML IV SCH (14:00)
--- NOTE | 2020-02-04 15:30 | NUR ---
Patient exhibiting improved neuro status patient is AOx3-4, able to state full name, location and year, unable to state month, patient verbalizes being forgetful and stated "i feel like i lost track of time and i feel hazy." Oriented patient to month and location and length of hospital stay. patient verbalized understanding. I will continue to monitor q1hr and prn.
[2020-02-04] MEDS: MORPHINE SULF INJ 2 MG/ML SYRINGE 1ML IV PRN (17:30)
--- NOTE | 2020-02-04 17:35 | NUR ---
Physician rounding Dr. Fonseca at bedside, updated him on patient status. No new orders at this time.
--- NOTE | 2020-02-04 17:40 | NUR ---
PATIENT COMPLAINT OF PAIN patient stated feeling /10 pain in her lower back. I will give ordered pain medications as prescribed. I will continue to monitor q1hr and prn Addendum: 02/04/20 at 1826 by GRACY IBARRA RN correct time for note was [id number]
--- NOTE | 2020-02-04 18:30 | NUR ---
provided patient with heat packs for her lower back discomfort.
--- NOTE | 2020-02-04 19:10 | NUR ---
end of shift note care of patient endorsed to noc modesto portillo. no s/s of distress noted at this time.
[2020-02-04] MEDS: CYCLOBENZAPRINE HCL 10 MG TAB PO SCH (22:13)
[2020-02-04] MEDS: traZODone HCL 50 MG TAB PO SCH (22:13)
[2020-02-04] MEDS: ATORVASTATIN 20 MG TAB PO SCH (22:13)
[2020-02-04] MEDS: INSULIN LANTUS (GLARGINE) 1 /0.01ml (100units/ml) SC SCH (22:32)
[2020-02-05] MEDS: LORazepam 0.5 MG TAB PO PRN ×2 (02:12→21:56)
[2020-02-05] MEDS: MORPHINE SULF INJ 2 MG/ML SYRINGE 1ML IV PRN ×2 (03:13→20:09)
[2020-02-05] MEDS: ACCU-CHEK COMFORT CURVE STRIP VI SCH ×6 (04:19→20:10)
[2020-02-05] MEDS: InsuLIN REG 1unit/0.01ml Soln (100units/ml) SC SCH ×6 (04:20→20:28)
[2020-02-05 04:56] VITALS: BP 139/58
[2020-02-05] MEDS: INSULIN LISPRO (HUMAN) 100 UNITS/ML ML SC SCH ×3 (06:04→16:23)
[2020-02-05 06:42] LABS: Basophils # (auto) 0 10 ^3/uL (0-0.2); Basophils % (auto) 0.2 % (0.0-2.0); Hemoglobin 9.2 g/dL (12.2-16.2); Mean Corpuscular Volume 86.2 fL (80.0-100.0); Monocytes # (auto) 1.1 10 ^3/uL (0-1.3)
[2020-02-05 06:44] LABS: Eosinophils # (auto) 0.1 10 ^3/uL (0-0.8); Eosinophils % (auto) 0.7 % (0.0-7.0); Hematocrit 28.7 % (36.0-46.0); Mean Corpuscular Hemoglobin 27.7 pg (28.0-32.0); Mean Corpuscular Hgb Conc. 32.1 g/dL (32.0-36.0); Monocytes % (auto) 6.7 % (0.0-12.0); Neutrophils # (auto) 14.1 10 ^3/uL (1.6-8.6); Neutrophils % (auto) 86.4 % (37.0-80.0); Platelet Count (auto) 596 10^3/uL (140-450); Red Blood Cells 3.33 10^6/uL (4.0-5.20); Red Cell Distribution Width 16.1 % (11.8-14.3); White Blood Cell 16.3 10^3/uL (4.4-10.8)
[2020-02-05 07:00] LABS: Albumin 1.5 g/dL (3.4-5.0); Calcium 9.2 mg/dL (8.5-10.1); Potassium 5.1 mmol/L (3.5-5.1)
[2020-02-05] MEDS: HYDROcodone-ACET 5/325MG TAB PO PRN ×2 (07:00→13:32)
[2020-02-05 07:03] LABS: BUN/Creatinine Ratio 32.8; Bilirubin, Total 0.5 mg/dL (0.2-1.0); Total Protein 8.4 g/dL (6.4-8.2)
--- NOTE | 2020-02-05 08:01 | NUR ---
LAB CALLED, PT BUN 80. CALLED DR ADAME, NOTIFIED HIM BUN 80, MD AWARE, NO NEW ORDERS.
[2020-02-05 09:00] VITALS: BP 137/71
[2020-02-05] MEDS: cefTRIAXone 1GM/50ML D5W 50 ML IV SCH (09:19)
[2020-02-05] MEDS: FUROSEMIDE 100 MG/10ML VIAL IV SCH (09:22)
[2020-02-05] MEDS: ENOXAPARIN SOD 30 MG/0.3 ML SYRINGE SC SCH (09:25)
[2020-02-05] MEDS: NIFEdipine ER 30 MG TAB PO SCH (09:26)
[2020-02-05] MEDS: FLORASTOR (S. BOULARDII) 250 MG CAP PO SCH (09:26)
[2020-02-05] MEDS: DOCUSATE SOD 100 MG CAP PO SCH (09:27)
[2020-02-05] MEDS: ALLOPURINOL 300 MG TAB PO SCH (09:27)
[2020-02-05] MEDS: METOPROLOL TARTRATE 50 MG TAB PO SCH ×2 (09:27→21:56)
[2020-02-05] MEDS: ASPirin 81 mg TAB PO SCH (09:27)
--- NOTE | 2020-02-05 09:31 | NUR ---
DR MACK AT BEDSIDE , NOTIFIED PROVIDER PT BUN 80, MD AWARE.
[2020-02-05] MEDS: ALBUMIN 25% 100 ML IV SCH ×2 (10:34→16:23)
--- NOTE | 2020-02-05 11:20 | NUR ---
DR ADAME SAW PATIENT AND DISCUSSED POC. REPORTS HE IS WAITING ON BLOOD CULTURES, WBC COUNT 16.3. HE ALSO REPORTS NEW ORDERS FOR CT ABDOMEN PELVIS W/O CONTRAST AND TO CALL PHYSICAL THERAPY TO HAVE THEM COME WORK WITH PATIENT.
[2020-02-05] MEDS: AZITHROMYCIN 500MG/ 250ML 250 ML IV SCH (11:24)
--- NOTE | 2020-02-05 12:41 | NUR ---
CALLED RADIOLOGY TO SEE IF THEY COULD DO CT TODAY, THEY REPORT THEY SHOULD BE ABLE TO GET IT DONE LATER, THE CT MACHINE IS NOT AVAILABLE RIGHT NOW IT IS BEING USED FOR A COVID PATIENT.
[2020-02-05 13:00] VITALS: BP 142/77
--- NOTE | 2020-02-05 14:55 | NUR ---
Pt had full bed bath and gown and linen change, new Optifoam applied to sacrum, will continue to monitor.
[2020-02-05] MEDS: DAPTOmycin 500 MG in SODIUM CHL 0.9% 50 ML IV SCH (14:58)
--- NOTE | 2020-02-05 16:00 | NUR ---
Called PBX and paged physical therapy.
--- NOTE | 2020-02-05 16:18 | NUR ---
1600 INSULIN HELD PT REPORTS SHE DID NOT EAT LUNCH AND ANN FROST REPORTS PT ATE 30% OF BREAKFAST.
[2020-02-05 17:00] VITALS: BP 120/85
--- NOTE | 2020-02-05 18:15 | NUR ---
PT ENCOURAGED TO EAT DINNER, LID TAKEN OFF TRAY AND TRAY MOVED IN FRONT OF PATIENT. PATIENT REPORTS SHE WILL TRY AND EAT.
[2020-02-05] MEDS ORDERED: LORazepam 2MG/ML-1ML VIAL IV PRN (19:00)
[2020-02-05] MEDS: INSULIN LANTUS (GLARGINE) 1 /0.01ml (100units/ml) SC SCH (21:51)
[2020-02-05] MEDS: traZODone HCL 50 MG TAB PO SCH (21:54)
[2020-02-05] MEDS: CYCLOBENZAPRINE HCL 10 MG TAB PO SCH (21:54)
[2020-02-05] MEDS: ATORVASTATIN 20 MG TAB PO SCH (21:55)
[2020-02-05 22:39] VITALS: BP 127/58
[2020-02-06] MEDS: HYDROcodone-ACET 5/325MG TAB PO PRN ×2 (01:37→08:43)
[2020-02-06] MEDS: InsuLIN REG 1unit/0.01ml Soln (100units/ml) SC SCH ×6 (04:00→20:00)
[2020-02-06] MEDS: MORPHINE SULF INJ 2 MG/ML SYRINGE 1ML IV PRN ×3 (04:34→23:17)
[2020-02-06] MEDS: ACCU-CHEK COMFORT CURVE STRIP VI SCH ×6 (05:09→20:13)
[2020-02-06 05:25] VITALS: BP 173/73
[2020-02-06 06:42] LABS: Hematocrit 24.2 % (36.0-46.0); Mean Corpuscular Hemoglobin 27.6 pg (28.0-32.0); Mean Corpuscular Hgb Conc. 31.8 g/dL (32.0-36.0); Mean Corpuscular Volume 86.6 fL (80.0-100.0); Neutrophils # (auto) 13.3 10 ^3/uL (1.6-8.6); Red Blood Cells 2.79 10^6/uL (4.0-5.20); White Blood Cell 15.6 10^3/uL (4.4-10.8)
[2020-02-06 06:44] LABS: Basophils # (auto) 0.1 10 ^3/uL (0-0.2); Basophils % (auto) 0.4 % (0.0-2.0); Eosinophils # (auto) 0.1 10 ^3/uL (0-0.8); Eosinophils % (auto) 0.9 % (0.0-7.0); Lymphocytes % (auto) 6.5 % (10.0-50.0); Monocytes # (auto) 1.1 10 ^3/uL (0-1.3); Monocytes % (auto) 7.2 % (0.0-12.0); Platelet Count (auto) 564 10^3/uL (140-450); Red Cell Distribution Width 15.7 % (11.8-14.3)
[2020-02-06] MEDS: INSULIN LISPRO (HUMAN) 100 UNITS/ML ML SC SCH ×3 (06:49→16:56)
[2020-02-06 06:53] LABS: Hemoglobin 7.7 g/dL (12.2-16.2)
[2020-02-06 07:01] LABS: Calcium 9.1 mg/dL (8.5-10.1); Potassium 4.6 mmol/L (3.5-5.1)
[2020-02-06 07:07] LABS: BUN/Creatinine Ratio 30.5; Bilirubin, Total 0.5 mg/dL (0.2-1.0); Total Protein 7.7 g/dL (6.4-8.2)
--- NOTE | 2020-02-06 07:10 | NUR ---
Opening Shift Note: Assumed care of patient, awake and alert x 3. No S/S of distress/SOB or pain. Bed in lowest locked position, side rails up x 2, call light within reach. Bed alarm activated for patient safety. Patient instructed on POC and to call for assist PRN, will continue to monitor for changes Q1hr and PRN.
[2020-02-06] MEDS: cefTRIAXone 1GM/50ML D5W 50 ML IV SCH (08:42)
[2020-02-06 09:00] VITALS: BP 140/89
[2020-02-06] MEDS: DOCUSATE SOD 100 MG CAP PO SCH (09:58)
[2020-02-06] MEDS: AZITHROMYCIN 500MG/ 250ML 250 ML IV SCH (09:58)
[2020-02-06] MEDS: ENOXAPARIN SOD 30 MG/0.3 ML SYRINGE SC SCH (09:58)
[2020-02-06] MEDS: METOPROLOL TARTRATE 50 MG TAB PO SCH ×2 (09:59→22:16)
[2020-02-06] MEDS: ASPirin 81 mg TAB PO SCH (09:59)
[2020-02-06] MEDS: ALLOPURINOL 300 MG TAB PO SCH (09:59)
[2020-02-06] MEDS: FUROSEMIDE 20 MG TAB PO SCH (10:00)
[2020-02-06] MEDS: NIFEdipine ER 30 MG TAB PO SCH (10:00)
[2020-02-06] MEDS: FLORASTOR (S. BOULARDII) 250 MG CAP PO SCH (10:07)
--- NOTE | 2020-02-06 10:10 | NUR ---
DR NAHED Slaughter at bedside. Discussed POC with patient. Patient verbally agreed. Will continue to monitor.
--- NOTE | 2020-02-06 10:54 | NUR ---
Patient refused to turn at this time.
--- NOTE | 2020-02-06 12:00 | NUR ---
Patient took off tele leads. Patient states "they are too sticky, i wanna make them stick less." Patient educated on need for tele monitor.
[2020-02-06 13:00] VITALS: BP 138/64
[2020-02-06] MEDS: DAPTOmycin 500 MG in SODIUM CHL 0.9% 50 ML IV SCH (13:25)
--- NOTE | 2020-02-06 13:41 | NUR ---
Patient refused to go down for MRI
[2020-02-06 17:00] VITALS: BP 160/63
--- NOTE | 2020-02-06 18:55 | NUR ---
CLOSING NOTE: Patient asleep in bed. No S/S of pain, distress or SOB at this time. Care endorsed to NOC RN.
--- NOTE | 2020-02-06 19:15 | NUR ---
Opening Shift Note Assumed care of patient, awake/alert. No S/S of distress/SOB and no complaints of pain at this time. POC discussed and questions answered. Bed is locked in lowest position with side rails up x2 for safety. Call light is within reach and patient encouraged to call for assistance PRN, will continue to monitor for changes Q1hr and PRN.
[2020-02-06 22:00] VITALS: BP 141/80
[2020-02-06] MEDS: INSULIN LANTUS (GLARGINE) 1 /0.01ml (100units/ml) SC SCH (22:00)
[2020-02-06] MEDS: CYCLOBENZAPRINE HCL 10 MG TAB PO SCH (22:14)
[2020-02-06] MEDS: traZODone HCL 50 MG TAB PO SCH (22:14)
[2020-02-06] MEDS: ATORVASTATIN 20 MG TAB PO SCH (22:16)
--- NOTE | 2020-02-06 22:18 | NUR ---
MEDICATION HELD LANTUS HELD THIS EVENING. PATIENT DID NOT EAT DINNER TONIGHT STATING "DON'T HAVE APPETITE". BLOOD GLUCOSE IS 117 AT THIS TIME.
--- NOTE | 2020-02-06 23:17 | NUR ---
PAIN PATIENT COMPLAINS OF 10/10 BACK PAIN. MORPHINE GIVEN WELL HAS HEAT PACK APPLIED TO LOWER BACK. WILL CONTINUE TO MONITOR.
[2020-02-07] MEDS: ACCU-CHEK COMFORT CURVE STRIP VI SCH ×6 (00:03→20:02)
--- NOTE | 2020-02-07 03:33 | NUR ---
TELE MONITOR PATIENT IS TAKING OFF TELE MONITOR AND DROPPING IT ON THE FLOOR, PATIENT EDUCATED ON THE IMPORTANCE OF KEEPING MONITOR ON, REENFORCEMENT NEEDED. WILL CONTINUE TO MONITOR.
[2020-02-07] MEDS: InsuLIN REG 1unit/0.01ml Soln (100units/ml) SC SCH ×6 (04:07→20:05)
[2020-02-07 05:00] VITALS: BP 146/85
[2020-02-07] MEDS: MORPHINE SULF INJ 2 MG/ML SYRINGE 1ML IV PRN ×2 (06:31→17:04)
[2020-02-07] MEDS: INSULIN LISPRO (HUMAN) 100 UNITS/ML ML SC SCH ×3 (06:36→16:36)
[2020-02-07 06:53] LABS: Basophils # (auto) 0 10 ^3/uL (0-0.2); Basophils % (auto) 0.3 % (0.0-2.0); Eosinophils # (auto) 0.1 10 ^3/uL (0-0.8)
[2020-02-07 06:55] LABS: Eosinophils % (auto) 0.7 % (0.0-7.0); Hemoglobin 8.8 g/dL (12.2-16.2); Lymphocytes % (auto) 5.9 % (10.0-50.0); Mean Corpuscular Hemoglobin 27.9 pg (28.0-32.0); Mean Corpuscular Hgb Conc. 32.4 g/dL (32.0-36.0); Mean Corpuscular Volume 86.1 fL (80.0-100.0); Monocytes # (auto) 0.9 10 ^3/uL (0-1.3); Monocytes % (auto) 5.4 % (0.0-12.0); Neutrophils # (auto) 15.1 10 ^3/uL (1.6-8.6); Neutrophils % (auto) 87.7 % (37.0-80.0); Nucleated Red Blood Cells % 0.1 %; Red Blood Cells 3.13 10^6/uL (4.0-5.20); Red Cell Distribution Width 16.1 % (11.8-14.3); White Blood Cell 17.3 10^3/uL (4.4-10.8)
--- NOTE | 2020-02-07 07:10 | NUR ---
Opening Shift Note: Assumed care of patient, awake and alert x 2. No S/S of distress/SOB. Patient states pain in back but cannot state pain level. Patient readjusted in bed, tele monitor leads placed back on patient. Patient educated on importance on tele monitor. Bed in lowest locked position, side rails up x 2, call light within reach. Bed alarm activated for patient safety. Patient instructed on POC and to call for assist PRN, will continue to monitor for changes Q1hr and PRN.
[2020-02-07 07:13] LABS: Calcium 9.3 mg/dL (8.5-10.1)
[2020-02-07 07:17] LABS: BUN/Creatinine Ratio 28.6; Bilirubin, Total 0.5 mg/dL (0.2-1.0); Total Protein 8.3 g/dL (6.4-8.2)
[2020-02-07 07:25] LABS: Platelet Count (auto) 678 10^3/uL (140-450)
[2020-02-07 09:00] VITALS: BP 141/72
[2020-02-07] MEDS: cefTRIAXone 1GM/50ML D5W 50 ML IV SCH (09:01)
--- NOTE | 2020-02-07 10:04 | NUR ---
WOUND CARE NOTE: Wound care in to see patient per wound care request regarding low Jonathon score of 13 and skin integrity issue that are noted upon skin assessment. Patient is 64 years old female with admitting diagnosis of Altered Mentation secondary to Htn, Enceph vs. Infection. Patient is resting in bed in Rm. 276B. Patient is awake, able to follow simple direction and able to verbalize needs. Patient appears to be in no pain using Jacques Hussein Faces Pain Scale, however mild pain noted upon turning. Patient is able to assist in turning and repositioning but staff reported that patient has been refusing turning. Her Jonathon score is 13. Skin/wound assessment done with the help of nurse assistant housekeeping manager. Patient came in with multi dry, intact scabs to Rt hip, dry scab to L medial foot/ankle and scabbed hyperkeratotic skin to L great toe, area is clean and dry, left open to air. Patient developed open partial thickness skin tear to R upper sacrum (1x1cm) and Lt buttock (1x1cm). Skin tears are red with pink norah wound, no drainage or odor noted. Norah care given, applied Z Guard cream and covered with Opti foam gentle dressing per MD order. Patient tolerated well, repositioned for comfort facing her Lt side,redistributed pressure points with pillows. Photograph of mentioned wounds are taken for reference. Bed in low position, call gambino within reach, bed alarm on. RECOMMENDATION: Nursing to continue with BID/PRN cleaning and application of Z Guard cream to sacral, buttocks per MD order, Dietary consult , frequent turning and repositioning schedule as condition permits, redistribute pressure points with pillows, elevate heels on pillows, continue monitoring by wound care while patient is hospitalized. Addendum: 02/07/20 at 1502 by Carmen Hatfield RN Amended: Links added.
--- NOTE | 2020-02-07 10:04 | NUR ---
DR. NAHED Slaughter at bedside
[2020-02-07] MEDS: ASPirin 81 mg TAB PO SCH (10:10)
[2020-02-07] MEDS: ENOXAPARIN SOD 30 MG/0.3 ML SYRINGE SC SCH (10:10)
[2020-02-07] MEDS: AZITHROMYCIN 500MG/ 250ML 250 ML IV SCH (10:10)
[2020-02-07] MEDS: ALLOPURINOL 300 MG TAB PO SCH (10:10)
[2020-02-07] MEDS: DOCUSATE SOD 100 MG CAP PO SCH (10:10)
[2020-02-07] MEDS: METOPROLOL TARTRATE 50 MG TAB PO SCH ×2 (10:11→22:33)
[2020-02-07] MEDS: FUROSEMIDE 20 MG TAB PO SCH (10:11)
[2020-02-07] MEDS: NIFEdipine ER 30 MG TAB PO SCH (10:11)
[2020-02-07] MEDS: FLORASTOR (S. BOULARDII) 250 MG CAP PO SCH (10:12)
[2020-02-07 13:00] VITALS: BP_SYST 147; BP_SYST 166; BP_DIAS 69; BP_DIAS 89
[2020-02-07] MEDS: DAPTOmycin 500 MG in SODIUM CHL 0.9% 50 ML IV SCH (13:13)
--- NOTE | 2020-02-07 15:33 | NUR ---
Nutrition Assessment Notes Please refer to link for full assessment notes. Est Energy needs: 7041-7057 kcals (12-15 kcal/kgBW) Est Protein needs: 58-73 gms/day (0.8-1.0 gm/kgBW) Will continue to monitor and reassess prn. Addendum: 02/07/20 at [address] Amended: Links added. Addendum: 02/08/20 at [address] PLEASE NOTE ADDITIONAL RECOMMENDATIONS 1) Suggest a daily MVI with 500mg VitC BID and Ptostat 1 pkt BID 2) If albumin continues trending down with improved RFTs, suggest Prostat 1pkt BID
--- NOTE | 2020-02-07 17:07 | NUR ---
PATIENT TAKEN DOWN TO CT SCAN AT THIS TIME.
[2020-02-07 17:10] VITALS: BP 139/68
--- NOTE | 2020-02-07 17:43 | NUR ---
PATIENT BACK TO UNIT AFTER CT SCAN. PATIENT TOLERATED WELL.
--- NOTE | 2020-02-07 19:01 | NUR ---
CLOSING NOTE: Patient resting in bed, no S/S of pain distress or SOB at this time. Care endorsed to NOC RN.
[2020-02-07 22:00] VITALS: BP 147/65
[2020-02-07] MEDS: traZODone HCL 50 MG TAB PO SCH (22:31)
[2020-02-07] MEDS: ATORVASTATIN 20 MG TAB PO SCH (22:32)
[2020-02-07] MEDS: CYCLOBENZAPRINE HCL 10 MG TAB PO SCH (22:32)
[2020-02-07] MEDS: INSULIN LANTUS (GLARGINE) 1 /0.01ml (100units/ml) SC SCH (22:38)
[2020-02-08] MEDS: MORPHINE SULF INJ 2 MG/ML SYRINGE 1ML IV PRN ×3 (00:01→22:05)
[2020-02-08] MEDS: ACCU-CHEK COMFORT CURVE STRIP VI SCH ×6 (00:02→20:19)
[2020-02-08] MEDS: InsuLIN REG 1unit/0.01ml Soln (100units/ml) SC SCH ×6 (00:23→20:18)
[2020-02-08] MEDS: HYDROcodone-ACET 5/325MG TAB PO PRN ×2 (04:36→15:54)
[2020-02-08 05:00] VITALS: BP 138/81
[2020-02-08 06:10] LABS: Eosinophils # (auto) 0.2 10 ^3/uL (0-0.8); Lymphocytes # (auto) 1.3 10 ^3/uL (0.4-5.4); Monocytes # (auto) 0.9 10 ^3/uL (0-1.3); Monocytes % (auto) 5.9 % (0.0-12.0); Neutrophils # (auto) 12.8 10 ^3/uL (1.6-8.6)
[2020-02-08 06:13] LABS: Basophils # (auto) 0 10 ^3/uL (0-0.2); Basophils % (auto) 0.3 % (0.0-2.0); Eosinophils % (auto) 1.4 % (0.0-7.0); Hematocrit 24.8 % (36.0-46.0); Hemoglobin 8.1 g/dL (12.2-16.2); Lymphocytes % (auto) 8.2 % (10.0-50.0); Mean Corpuscular Hemoglobin 28.1 pg (28.0-32.0); Mean Corpuscular Hgb Conc. 32.5 g/dL (32.0-36.0); Mean Corpuscular Volume 86.4 fL (80.0-100.0); Neutrophils % (auto) 84.2 % (37.0-80.0); Platelet Count (auto) 679 10^3/uL (140-450); Red Blood Cells 2.87 10^6/uL (4.0-5.20); Red Cell Distribution Width 15.8 % (11.8-14.3); White Blood Cell 15.2 10^3/uL (4.4-10.8)
[2020-02-08] MEDS: INSULIN LISPRO (HUMAN) 100 UNITS/ML ML SC SCH ×3 (06:34→16:46)
[2020-02-08 06:35] LABS: Albumin 1.8 g/dL (3.4-5.0); Calcium 9.5 mg/dL (8.5-10.1); Potassium 4.6 mmol/L (3.5-5.1)
[2020-02-08 06:39] LABS: BUN/Creatinine Ratio 28.8; Bilirubin, Total 0.3 mg/dL (0.2-1.0); Total Protein 7.9 g/dL (6.4-8.2)
[2020-02-08 09:00] VITALS: BP 134/63
[2020-02-08] MEDS: ASPirin 81 mg TAB PO SCH (09:54)
[2020-02-08] MEDS: FLORASTOR (S. BOULARDII) 250 MG CAP PO SCH (09:54)
[2020-02-08] MEDS: DOCUSATE SOD 100 MG CAP PO SCH (09:54)
[2020-02-08] MEDS: FUROSEMIDE 20 MG TAB PO SCH (09:55)
[2020-02-08] MEDS: METOPROLOL TARTRATE 50 MG TAB PO SCH ×2 (09:55→22:03)
[2020-02-08] MEDS: NIFEdipine ER 30 MG TAB PO SCH (09:55)
[2020-02-08] MEDS: ENOXAPARIN SOD 30 MG/0.3 ML SYRINGE SC SCH (09:56)
[2020-02-08] MEDS: ALLOPURINOL 300 MG TAB PO SCH (09:56)
[2020-02-08 13:00] VITALS: BP 133/68
[2020-02-08] MEDS: DAPTOmycin 500 MG in SODIUM CHL 0.9% 50 ML IV SCH (14:21)
--- NOTE | 2020-02-08 14:27 | NUR ---
I faxed higher level of care request/clinical packet to [facility].
--- NOTE | 2020-02-08 16:27 | NUR ---
I spoke with Sandra at [facility] [phone]-provided her with additional clinical information as requested.
[2020-02-08 17:00] VITALS: BP 146/75
--- NOTE | 2020-02-08 17:24 | NUR ---
Patient refused to turn at this time. Patient states "I feel better laying on my back.' Patient educated on need to turn, patient continues to refuse.
--- NOTE | 2020-02-08 20:20 | NUR ---
Sacral wound cleansed per orders. Dressing applied. Patient tolerated well.
[2020-02-08 22:00] VITALS: BP 142/68
[2020-02-08] MEDS: traZODone HCL 50 MG TAB PO SCH (22:02)
[2020-02-08] MEDS: CYCLOBENZAPRINE HCL 10 MG TAB PO SCH (22:02)
[2020-02-08] MEDS: ATORVASTATIN 20 MG TAB PO SCH (22:03)
[2020-02-08] MEDS: INSULIN LANTUS (GLARGINE) 1 /0.01ml (100units/ml) SC SCH (22:04)
[2020-02-09] MEDS: ACCU-CHEK COMFORT CURVE STRIP VI SCH ×6 (00:07→20:00)
[2020-02-09] MEDS: InsuLIN REG 1unit/0.01ml Soln (100units/ml) SC SCH ×6 (00:07→20:00)
--- NOTE | 2020-02-09 03:02 | NUR ---
Closing note: Patient sleeping in bed. No S/S of pain, distress or SOB. Bed alarm activated Care endorsed.
[2020-02-09 05:00] VITALS: BP 148/73
[2020-02-09] MEDS: INSULIN LISPRO (HUMAN) 100 UNITS/ML ML SC SCH ×3 (06:33→16:15)
--- NOTE | 2020-02-09 08:00 | NUR ---
OPENING SHIFT NOTE: PATIENT RESTING IN BED, A/OX4 RESPIRATIONS EVEN AND UNLABORED. PATIENT RE-POSITIONED FOR COMFORT. SINGH HUNG BELOW BLADDER FREE OF KINKS. UPDATED ON PLAN OF CARE PATIENT VERBALIZED UNDERSTANDING. CALL LIGHT PLACED WITHIN REACH, BED ALARM ON AND IN PLACE WILL CONTINUE TO MONITOR.
[2020-02-09 08:39] VITALS: BP 126/84
[2020-02-09] MEDS: ASPirin 81 mg TAB PO SCH (08:52)
[2020-02-09] MEDS: NIFEdipine ER 30 MG TAB PO SCH (08:53)
[2020-02-09] MEDS: FLORASTOR (S. BOULARDII) 250 MG CAP PO SCH (08:53)
[2020-02-09] MEDS: DOCUSATE SOD 100 MG CAP PO SCH (08:53)
[2020-02-09] MEDS: METOPROLOL TARTRATE 50 MG TAB PO SCH ×2 (08:54→21:04)
[2020-02-09] MEDS: ALLOPURINOL 300 MG TAB PO SCH (08:54)
[2020-02-09] MEDS: FUROSEMIDE 20 MG TAB PO SCH (08:54)
--- NOTE | 2020-02-09 09:15 | NUR ---
RN requested PT tx later. Addendum: 02/09/20 at 1233 by mOid Saldivar CHIEF OPERATOR HYDROFORMER Amended: Links added.
--- NOTE | 2020-02-09 09:55 | NUR ---
PATIENT CARE: HOT PACKS APPLIED TO POSTERIOR BACK, PATIENT SACRAL OPTIFOAM CDI, PATIENT ENCOURAGED TO TURN AND REPOSITIONED FOR COMFORT.
--- NOTE | 2020-02-09 11:00 | NUR ---
I called [facility] Transfer [facility] and spoke with Rosa, she said their orthopedic MD Dr. Goldstein declined the transfer-stating that patient should be treated with IV ATB at this time. I relayed this information to Dr. Gisell Slaughter-he requested that I reach out to other facilities. I called [facility] ([facility])[phone] and spoke with Tanya Kaplan, provided her with contact information for the nurse's station as well as Dr. Gisell Slaughter-faxed her requested clinical documentation to [phone].
--- NOTE | 2020-02-09 11:33 | NUR ---
MD ADAME ROUNDING: PATIENT UPDATED ON PLAN OF CARE, VERBALIZED UNDERSTANDING. SON LEIGHTON CALLED AND UPDATED WELL.
[2020-02-09 12:44] VITALS: BP 128/59
[2020-02-09] MEDS: HYDROcodone-ACET 5/325MG TAB PO PRN (13:10)
[2020-02-09] MEDS: DAPTOmycin 500 MG in SODIUM CHL 0.9% 50 ML IV SCH (13:42)
--- NOTE | 2020-02-09 13:43 | NUR ---
CALL FROM [facility]: [facility] ACCEPTING PATIENT. NO BED ASSIGNMENT GIVEN YET.
--- NOTE | 2020-02-09 16:20 | NUR ---
FAX SENT BACK TO [facility] WITH PATIENT'S SIGNATURE ON ACCEPTANCE FOR TRANSFER TO [place]. SPOKE WITH LEIGHTON REGARDING PLAN OF CARE, VERBALIZED UNDERSTANDING.
[2020-02-09 17:00] VITALS: BP 105/65
--- NOTE | 2020-02-09 18:52 | NUR ---
CARE ENDORSED TO ARUNA HOLMAN.
[2020-02-09] MEDS: MORPHINE SULF INJ 2 MG/ML SYRINGE 1ML IV PRN (20:36)
[2020-02-09] MEDS: INSULIN LANTUS (GLARGINE) 1 /0.01ml (100units/ml) SC SCH (20:58)
[2020-02-09] MEDS: ATORVASTATIN 20 MG TAB PO SCH (20:59)
[2020-02-09] MEDS: traZODone HCL 50 MG TAB PO SCH (21:01)
[2020-02-09] MEDS: CYCLOBENZAPRINE HCL 10 MG TAB PO SCH (21:01)
[2020-02-09 22:00] VITALS: BP 156/77
[2020-02-10] MEDS: InsuLIN REG 1unit/0.01ml Soln (100units/ml) SC SCH ×5 (00:35→18:03)
[2020-02-10] MEDS: ACCU-CHEK COMFORT CURVE STRIP VI SCH ×4 (00:35→12:06)
[2020-02-10] MEDS: MORPHINE SULF INJ 2 MG/ML SYRINGE 1ML IV PRN ×2 (03:01→14:27)
[2020-02-10 05:00] VITALS: BP 135/67
[2020-02-10] MEDS: HYDROcodone-ACET 5/325MG TAB PO PRN ×2 (05:09→11:47)
[2020-02-10] MEDS: INSULIN LISPRO (HUMAN) 100 UNITS/ML ML SC SCH ×3 (06:21→18:04)
--- NOTE | 2020-02-10 06:32 | NUR ---
Pt sleeping soundly; relaxed body and face. BG 147. Humalog given as ordered. Pt dropping off to sleep easily.
--- NOTE | 2020-02-10 07:45 | NUR ---
OPENING SHIFT NOTE: PATIENT RESTING IN BED ASLEEP, EASLIY AWOKEN, A/OX4 RESPIRATIONS EVEN AND UNLABORED. PATIENT RE-POSITIONED FOR COMFORT. SINGH HUNG BELOW BLADDER FREE OF KINKS. UPDATED ON PLAN OF CARE PATIENT VERBALIZED UNDERSTANDING. CALL LIGHT PLACED WITHIN REACH, BED ALARM ON AND IN PLACE WILL CONTINUE TO MONITOR.
[2020-02-10 09:00] VITALS: BP 120/64
--- NOTE | 2020-02-10 10:01 | NUR ---
I faxed updated transfer order and transfer back agreement to [facility].
--- NOTE | 2020-02-10 11:30 | NUR ---
I called [facility] [phone] and spoke with Amna, she said they did receive my fax and are just waiting on a bed to open up for this patient-they will call when a bed becomes available.
[2020-02-10] MEDS: ALLOPURINOL 300 MG TAB PO SCH (11:47)
[2020-02-10] MEDS: FUROSEMIDE 20 MG TAB PO SCH (11:48)
[2020-02-10] MEDS: METOPROLOL TARTRATE 50 MG TAB PO SCH (11:48)
[2020-02-10] MEDS: NIFEdipine ER 30 MG TAB PO SCH (11:48)
[2020-02-10] MEDS: DOCUSATE SOD 100 MG CAP PO SCH (11:49)
[2020-02-10] MEDS: FLORASTOR (S. BOULARDII) 250 MG CAP PO SCH (11:49)
[2020-02-10] MEDS: ASPirin 81 mg TAB PO SCH (11:49)
--- NOTE | 2020-02-10 11:50 | NUR ---
WOUND CARE PHOTOS OBTAINED FOR
[2020-02-10 12:54] VITALS: BP 123/6
--- NOTE | 2020-02-10 13:00 | NUR ---
PATIENT CARE: FULL LINEN CHANGE AND BED BATH GIVEN. PATIENT TOLERATED FAIR, REPORTING INCREASE PAIN FROM 5-7 OUT OF 10. WILL MEDICATE AND GIVE HOT PACKS REQUESTED.
--- NOTE | 2020-02-10 13:58 | NUR ---
VOICEMAIL LEFT FOR [facility] CASE MANAGEMENT REGARDING ANY UPDATES FOR BED ASSIGNMENTS FROM [facility], PENDING CALL BACK.
[2020-02-10] MEDS: DAPTOmycin 500 MG in SODIUM CHL 0.9% 50 ML IV SCH (14:27)
[2020-02-10 17:00] VITALS: BP 96/50
--- NOTE | 2020-02-10 18:00 | NUR ---
CALL FROM [facility] RN GASTROENTEROLOGY [facility]ATI: PATIENT ABLE TO GO TO BED 5221. ACCEPTING MD Manohar HOFFMANN. RN GASTROENTEROLOGY ASSESSMENT COORDINATOR PAGED.
--- NOTE | 2020-02-10 18:04 | NUR ---
CALL FROM [employer] DEVELOPER: [facility] TO BE ARRANGED. CONFERENCE CALL MADE, PATIENT TO BE PICKED UP AT [address] [facility].
--- NOTE | 2020-02-10 18:25 | NUR ---
REPORT: THIS RN ATTEMPTED TO CALL AND GIVE REPORT TO [facility] RN FOR BED 5221. JAMEL VALENTINE INFORMED THIS RN SHE DOES NOT YET HAVE AN RN ASSIGNED TO THAT ROOM AND TO HAVE [facility] RN CALL BACK FOR REPORT AFTER 1900.
--- NOTE | 2020-02-10 18:29 | NUR ---
LEIGHTON: FAMILY UPDATED ON TRANSFER.
[2020-02-10 18:32] VITALS: BP 123/60
--- NOTE | 2020-02-10 19:11 | NUR ---
CARE ENDORSED TO NOC RIVER VALDOVINOS.
--- NOTE | 2020-02-10 19:52 | NUR ---
Received report re. pt. from RIVER Nunes. Pt alert and oriented x3 -4. Paperwork done for transfer to [facility]; pt signed and witnessed by this RN and RIVER Armstrong. [facility] here for transport report given to both attendees by this RN. Son notified via telephone that pt being transported by [facility] to [facility] at this time. Telemetry dc'd. F/C and midline to L arm cont as placed. Pt in stable condition. Transported via gurney to ambulance by [facility] attendees; discharged. Copy of chart as directed sent with [facility] team. Hospital notified by RIVER Nunes and report given by her to receiving RN.
== END 2020-02-10 19:30 | DRG 871 ==
LOC: EDBD 15:05 → ER 15:05 → TELE 15:06 → DOU IN ICU 23:26 → TELE-WESTW 01-29 17:15
PROVIDERS: ADMIT Hospitalist; ATTEND Family Medicine
DX: A41.9 Sepsis, unspecified organism (principal); R65.21 Severe sepsis with septic shock; G93.41 Metabolic encephalopathy; I21.A1 Myocardial infarction type 2; N17.0 Acute kidney failure with tubular necrosis; J15.9 Unspecified bacterial pneumonia; I16.9 Hypertensive crisis, unspecified; E87.1 Hypo-osmolality and hyponatremia; I16.1 Hypertensive emergency; J44.1 Chronic obstructive pulmonary disease with (acute) exacerbation; J45.901 Unspecified asthma with (acute) exacerbation; I13.0 Hypertensive heart and chronic kidney disease with heart failure and stage 1 through stage 4 chronic kidney disease, or unspecified chronic kidney disease; N18.4 Chronic kidney disease, stage 4 (severe); N39.0 Urinary tract infection, site not specified; M86.9 Osteomyelitis, unspecified; J44.0 Chronic obstructive pulmonary disease with (acute) lower respiratory infection; I50.42 Chronic combined systolic (congestive) and diastolic (congestive) heart failure; E66.01 Morbid (severe) obesity due to excess calories; W19.XXXA Unspecified fall, initial encounter; Y92.009 Unspecified place in unspecified non-institutional (private) residence as the place of occurrence of the external cause; F32.9 Major depressive disorder, single episode, unspecified; F41.9 Anxiety disorder, unspecified; F03.90 Unspecified dementia, unspecified severity, without behavioral disturbance, psychotic disturbance, mood disturbance, and anxiety; G47.00 Insomnia, unspecified; D50.9 Iron deficiency anemia, unspecified; M10.9 Gout, unspecified; E78.00 Pure hypercholesterolemia, unspecified; E11.65 Type 2 diabetes mellitus with hyperglycemia; E11.22 Type 2 diabetes mellitus with diabetic chronic kidney disease; E11.42 Type 2 diabetes mellitus with diabetic polyneuropathy; E86.0 Dehydration; B95.61 Methicillin susceptible Staphylococcus aureus infection as the cause of diseases classified elsewhere; E78.5 Hyperlipidemia, unspecified; L08.9 Local infection of the skin and subcutaneous tissue, unspecified; M46.46 Discitis, unspecified, lumbar region; D63.8 Anemia in other chronic diseases classified elsewhere; Z79.899 Other long term (current) drug therapy; Z90.49 Acquired absence of other specified parts of digestive tract; Z90.710 Acquired absence of both cervix and uterus; Z83.3 Family history of diabetes mellitus; Z79.4 Long term (current) use of insulin; Z80.8 Family history of malignant neoplasm of other organs or systems; Z68.39 Body mass index [BMI] 39.0-39.9, adult; Z03.818 Encounter for observation for suspected exposure to other biological agents ruled out
CPT/HCPCS: 36415; 36600; 70450; 71045; 71250; 72131; 72192; 73700; 74176; 76775; 78582; 80048; 80053; 80061; 80307; 81001; 82306; 82550; 82570; 82607; 82746; 82784; 82805; 82962; 83036; 83540; 83550; 83605; 83735; 83880; 83930; 83935; 83970; 84100; 84156; 84300; 84443; 84484; 84550; 85025; 85045; 85379; 85610; 85652; 85730; 86141; 86334; 86592; 87040; 87077; 87081; 87086; 87147; 87186; 93306; 93970; 95819; 97110; 97530; G0378; J0696; J1815; J2405; P9047